=== PATIENT | male | born 1945 | race Caucasian/White ===

== ENCOUNTER 2017-07-28 10:14 | Emergency (ER) | payer OTHER ==
[~2017-07-28] VITALS: Ht 175.3 cm; Wt 74.8 kg
[~2017-07-28 10:14] MED LIST: ALBUTEROL2.5 MG/31 INH; ALDACTONE25 MG PO; ALL DAY ALLERGY10 M3 PO; ALLOPURINOL 30300 M2 PO; AMARYL2 MG PO; AMBIEN 10 MG TA10 MG PO; AMITRIPTYLINE H10 M3 PO; ANASPAZ0.125 MG PO; ASA5UEC PO; ASPIRIN EC81 M1 PO; ATORVASTATIN CA40 MG PO; AUGMENTIN 875875 MG PO; BAYER CHEWABLE81 MG PO; CALCIUM 600 WI1 EAC5 PO; COLACE100 MG PO; DILTIAZEM 24HR300 M1; DILTIAZEM 24HR300 M1 PO; DILTIAZEM 24HR300 M2 PO; FLOMAX PO; FLOMAX0.4 MG PO; GEMFIBROZIL 60600 MG; GEMFIBROZIL 60600 MG PO; GENTAMICIN SU3 MG/ML OPHTHALMIC; GLUCOPHAGE500 MG PO; HYDROCODON-ACE1 EAC5 PO; LANTAPROST OPHTHALMIC; LANTUS100 UNIT/M SUBQ; LEVOTHYROXIN0.137 M1 PO; LIPITOR40 MG PO; LISINOPRIL-HCT1 EAC2 PO; LISINOPRIL10 MG PO; LORTAB 7.5/5001 TA3 PO; MAGOX 400400 MG PO; MULTIVITAMINS PO; NEURONTIN300 MG PO; OMEPRAZOLE; PLAVIX 75 MG TA75 M1 PO; POTASSIUM20 PO; POTASSIUM99 M2 PO; PREDNISONE 10 M10 MG PO; PRILOSEC 20 MG20 MG PO; PRINZIDE 20-251 EACH PO; SAW PALMETTO500 MG PO; SPIRIVA INH; TAMSULOSIN HCL0.4 M1 PO; UNICOMPLEX M TA1 TA1 PO; VESICARE 5 MG TA5 M1 PO; VESICARE 5 MG TA5 MG PO; VITAMIN E400 UNIT PO; ZANAFLEX4 MG PO; ZINC CHELATE50 MG PO; ZYRTEC 10 MG TA10 MG PO; ZYRTEC10 M2 PO
[2017-07-28 10:50] LABS: ABSOLUTE EOSINOPHILS 0.1 thou/uL (0.0-0.7); ABSOLUTE LYMPHOCYTES 1.6 thou/uL (0.8-5.3); ABSOLUTE MONOCYTES 0.6 thou/uL (0.0-1.2); BASOPHILS 0.4 %; EOSINOPHILS 0.8 %; HEMATOCRIT 43.1 % (42.0-52.0); HEMOGLOBIN 14.6 gm/dL (14.0-18.0); LYMPHOCYTES 14.4 %; MCH 31.1 pg (26.0-34.0); MCHC 33.9 g/dL (28.0-37.0); MCV 91.7 fL (80.0-100.0); MONOCYTES 5.3 %; NUCLEATED RBCS 0 /100WBC; PLATELET COUNT* 326 thou/uL (150-400); POLYS 79.1 %; RDW-CV 14.6 % (10.5-14.5); WBC 11.4 thou/uL (4.0-11.0)
[2017-07-28 10:57] LABS: ANION GAP 10 mmol/L (7-16); BUN 21 mg/dL (7-18); CALCIUM 9.3 mg/dL (8.5-10.1); CHLORIDE 96 mmol/L (98-107); CO2 28 mmol/L (21-32); CREATININE 1.2 mg/dL (0.6-1.3); GLUCOSE 83 mg/dL (70-99); POTASSIUM 3.8 mmol/L (3.5-5.1); SODIUM 134 mmol/L (136-145)
[2017-07-28 11:08] LABS: ALBUMIN 4.1 g/dL (3.4-5.0); ALKALINE PHOSPHATASE 80 U/L (46-116); NT-PRO BRAIN NAT PEPTIDE 53 pg/mL (<300); SGOT 19 U/L (15-37); SGPT 28 U/L (30-65); TOTAL BILIRUBIN 0.3 mg/dL (<0.1-1.0); TOTAL PROTEIN 7.3 g/dL (6.4-8.2); TROPONIN-I LEVEL <0.06 ng/mL (<0.06)
[2017-07-28 11:49] LABS: URINE BILIRUBIN NEGATIVE (Negative); URINE BLOOD NEGATIVE (Negative); URINE CLARITY CLEAR; URINE COLOR YELLOW; URINE GLUCOSE-RANDOM NEGATIVE (Negative); URINE KETONES NEGATIVE (Negative); URINE LEUKOCYTES-REFLEX NEGATIVE (Negative); URINE NITRITE-REFLEX NEGATIVE (Negative); URINE PROTEIN NEGATIVE (Negative); URINE UROBILINOGEN 0.2 E.U./dl (0.2-1.0)
[2017-07-28 12:26] VITALS: BP 147/63
--- NOTE | 2017-07-29 13:06 | EKG ---
[place] [address] ELECTROCARDIOGRAM REPORT Name: PATRICK GREENWOOD Room: [facility]#: [id number] Admission: 07/28/17 Attend Phys: Discharge: 07/28/17 Date of : 41 Report #: [id number] THIS REPORT FOR: //name// ED Test Date: 2017-07-28 Test Time: 10:16:28 Pat Name: PATRICK GREENWOOD Department: Room: Gender: M Warehouse Selector: Jony BROOKE : 1945 Requested By: Star Glover Order Number: [id number] MD: George Orosco Measurements Intervals [place] Rate: 80 P: VA: QRS: 69 QRSD: 109 T: 64 QT: 370 QTc: 427 Interpretive Statements Atrial fibrillation Abnormal inferior Q waves Compared to ECG 07/16/2016 11:23:31 Inferior Q waves now present Q waves now present Sinus tachycardia no longer present Myocardial infarct finding no longer present Electronically Signed On 07-29-2017 13:06:06 CDT by George Orosco [email or web address] <ELECTRONICALLY SIGNED> By: George Orosco MD, FACC 07/29/17 1306 1016 1016 George Orosco MD, FAC /EPI
== END 2017-07-28 12:27 | disposition home or self-care (01) ==
LOC: M.ERS 10:14
PROVIDERS: Emergency Medicine Emergency Medical Services
DX: I10 Essential (primary) hypertension (principal); N40.0 Benign prostatic hyperplasia without lower urinary tract symptoms; E03.9 Hypothyroidism, unspecified; Z90.49 Acquired absence of other specified parts of digestive tract; Z86.73 Personal history of transient ischemic attack (TIA), and cerebral infarction without residual deficits; Z88.8 Allergy status to other drugs, medicaments and biological substances; Z79.4 Long term (current) use of insulin

== ENCOUNTER 2018-08-22 18:30 | Emergency (ER) | payer OTHER ==
[~2018-08-22] VITALS: Ht 175.3 cm; Wt 79.8 kg
[2018-08-22 18:49] VITALS: BP 159/79
== END 2018-08-22 19:41 | disposition home or self-care (01) ==
LOC: M.ERS 18:30
DX: R04.0 Epistaxis (principal); I10 Essential (primary) hypertension; E11.9 Type 2 diabetes mellitus without complications; J44.9 Chronic obstructive pulmonary disease, unspecified; E03.9 Hypothyroidism, unspecified; N40.0 Benign prostatic hyperplasia without lower urinary tract symptoms; Z88.5 Allergy status to narcotic agent; Z88.8 Allergy status to other drugs, medicaments and biological substances

== ENCOUNTER 2018-08-30 15:35 | Emergency (ER) | payer OTHER ==
[~2018-08-30] VITALS: Ht 175.3 cm; Wt 77.1 kg
[2018-08-30 15:40] VITALS: BP 185/84
== END 2018-08-30 16:10 | disposition home or self-care (01) ==
LOC: M.ERS 15:35
DX: R04.0 Epistaxis (principal); I10 Essential (primary) hypertension; E11.9 Type 2 diabetes mellitus without complications; J44.9 Chronic obstructive pulmonary disease, unspecified; E03.9 Hypothyroidism, unspecified; Z90.49 Acquired absence of other specified parts of digestive tract; Z86.73 Personal history of transient ischemic attack (TIA), and cerebral infarction without residual deficits; Z79.4 Long term (current) use of insulin; Z88.5 Allergy status to narcotic agent; Z88.8 Allergy status to other drugs, medicaments and biological substances

== ENCOUNTER 2018-08-31 12:50 | Emergency (ER) | payer OTHER ==
[~2018-08-31] VITALS: Ht 175.3 cm; Wt 77.1 kg
[2018-08-31 15:26] VITALS: BP 168/69
== END 2018-08-31 15:27 | disposition home or self-care (01) ==
LOC: M.ERS 12:50
DX: R04.0 Epistaxis (principal); N40.0 Benign prostatic hyperplasia without lower urinary tract symptoms; I10 Essential (primary) hypertension; E11.9 Type 2 diabetes mellitus without complications; E03.9 Hypothyroidism, unspecified; J44.9 Chronic obstructive pulmonary disease, unspecified; Z90.49 Acquired absence of other specified parts of digestive tract; Z79.4 Long term (current) use of insulin; Z98.52 Vasectomy status; Z88.8 Allergy status to other drugs, medicaments and biological substances; Z86.73 Personal history of transient ischemic attack (TIA), and cerebral infarction without residual deficits; Z90.89 Acquired absence of other organs

== ENCOUNTER 2018-10-20 18:37 | Emergency (ER) | payer OTHER ==
[~2018-10-20] VITALS: Ht 175.3 cm; Wt 81.7 kg
[2018-10-20 20:40] VITALS: BP 174/79
== END 2018-10-20 20:41 | disposition home or self-care (01) ==
LOC: M.ERS 18:37
DX: S52.125A Nondisplaced fracture of head of left radius, initial encounter for closed fracture (principal); S52.124A Nondisplaced fracture of head of right radius, initial encounter for closed fracture; I10 Essential (primary) hypertension; E11.9 Type 2 diabetes mellitus without complications; J44.9 Chronic obstructive pulmonary disease, unspecified; E03.9 Hypothyroidism, unspecified; Z79.4 Long term (current) use of insulin; Z90.49 Acquired absence of other specified parts of digestive tract; Z90.89 Acquired absence of other organs; Z86.73 Personal history of transient ischemic attack (TIA), and cerebral infarction without residual deficits; Z88.5 Allergy status to narcotic agent; Z88.8 Allergy status to other drugs, medicaments and biological substances; W18.39XA Other fall on same level, initial encounter; Y93.89 Activity, other specified; Y92.098 Other place in other non-institutional residence as the place of occurrence of the external cause; Y99.8 Other external cause status

== ENCOUNTER 2021-01-05 22:13 | Inpatient (IN) | payer OTHER ==
[~2021-01-05] VITALS: Ht 152.4 cm; Wt 76.1 kg
[2021-01-05 22:16] VITALS: BP 88/43
[2021-01-05] MEDS ORDERED: MICARDIS 20MG T20 M1 PO (22:28)
[2021-01-05] MEDS ORDERED: HYDROCHLOROTHIA25 M1 PO (22:28)
[2021-01-05] MEDS ORDERED: SPIRONOLACTONE25 MG PO (22:29)
[2021-01-05] MEDS ORDERED: NORVASC10 MG PO (22:30)
[2021-01-05 23:02] LABS: ABSOLUTE LYMPHOCYTES 1.2 thou/uL (0.8-5.3); ABSOLUTE MONOCYTES 0.5 thou/uL (0.0-1.2); ABSOLUTE NEUTROPHILS 5.4 thou/uL (1.6-8.1); BASOPHILS 0.2 %; HEMATOCRIT 42.2 % (42.0-52.0); HEMOGLOBIN 14.4 gm/dL (14.0-18.0); LYMPHOCYTES 17.3 %; MCH 31.3 pg (26.0-34.0); MCV 91.9 fL (80.0-100.0); MONOCYTES 7.2 %; MPV 7.9 fl. (7.2-11.1); NUCLEATED RBCS 0 /100WBC; PLATELET COUNT* 216 thou/uL (150-400); POLYS 75.3 %; RDW-CV 14.7 % (10.5-14.5); WBC 7.1 thou/uL (4.0-11.0)
--- NOTE | 2021-01-05 23:04 | NUR ---
THIS RN NOTED ASYSTOLE ON THE MONITOR, WITH NO PULSE PRESENT, AGONAL BREATHING. BEFORE CPR COULD BE INITIATED, PATIENT REGAINED PULSE AND SPONTANEOUS RESPIRATIONS. DR. LANCASTER CALLED TO BEDSIDE. VITAL SIGNS STABLE AT THIS TIME.
[2021-01-05 23:11] LABS: CALCIUM 8.4 mg/dL (8.5-10.1); CREATININE 1.6 mg/dL (0.6-1.3)
[2021-01-05 23:14] LABS: PROTIME 10.3 Seconds (9.20-11.50)
[2021-01-05 23:22] LABS: ALBUMIN 3.1 g/dL (3.4-5.0); TOTAL BILIRUBIN 0.3 mg/dL (<0.1-1.0)
[2021-01-06] VITALS (15 sets, daily range): BP systolic 134–187; BP diastolic 62–87
[2021-01-06 02:47] LABS: URINE BILIRUBIN NEGATIVE (Negative); URINE BLOOD NEGATIVE (Negative); URINE CLARITY CLEAR; URINE COLOR YELLOW; URINE GLUCOSE-RANDOM NEGATIVE (Negative); URINE KETONES NEGATIVE (Negative); URINE LEUKOCYTES-REFLEX NEGATIVE (Negative); URINE NITRITE-REFLEX NEGATIVE (Negative); URINE PROTEIN NEGATIVE (Negative); URINE SPECIFIC GRAVITY <= 1.005 (1.005-1.030); URINE UROBILINOGEN 0.2 E.U./dl (0.2-1.0)
--- NOTE | 2021-01-06 16:46 | NUR ---
Spoke with Veronica over the phone due to patient being in COVID isolation. Introduced role of CM. Per , patient was independent with ADLS prior to admission. Patient lives in a house with his . No stairs in the home. No hx of DME, dialysis, infusion therapy, BHS, HH, SNF or rehab. PCP is Sergio Stern. stated that she believes Medical DPOA has been established but she said she is not sure where the paperwork is. Advised that when her COVID symptoms have resolved and the alotted days have passed before going around others, to bring the paperwork up the hospital. verbalized understanding. tested postive for COVID today. Current plan of care: Patient is currently on 2L NC and ortho has been consulted for ankle fx sustained post fall out of bed. Cards following for HR and rhythm management. Patient could potentially downgrade to tele either today or tomorrow per physician. Therapies will need to be order post surgery to help with dc dispo. CM to continue to follow.
--- NOTE | 2021-01-06 17:52 | 2DMMODE ---
[place] [address] 2 D/M-MODE ECHOCARDIOGRAM Name: PATRICK GREENWOOD Room: [address] ADM IN .R.#: [id number] Admission: 01/06/21 Attend Phys: Joey Jerome Discharge: Date of : 41 Date of Service: 01/06/21 1752 Report #: [id number] THIS REPORT FOR: cc: Sergio Stern MD, Anthony MD Liston, Michael J. MD [facility] ~ APPROVED REPORT Study performed: 01/06/2021 13:47:57 EXAM: Comprehensive 2D, Doppler, and color-flow Echocardiogram Patient Location: In-Patient BSA: 1.92 HR: 87 bpm BP: 138/62 mmHg Other Information Study Quality: Technically Limited Technically limited study due to patient coughing. Indications Murmur 2D Dimensions IVSd: 9.99 (7-11mm) LVOT Diam: 17.31 (18-24mm) LVDd: 36.13 mm PWd: 11.46 (7-11mm) Ascending Ao: 30.74 (22-36mm) LVDs: 27.79 (25-40mm) Aortic Root: 24.92 mm Volumes Left Atrial Volume (Systole) LA ESV Index: 47.80 mL/m2 Aortic Valve AoV Peak Hector.: 0.85 m/s AO Peak Gr.: 2.87 mmHg LVOT Max P.27 mmHg AO Mean Gr.: 1.71 mmHg LVOT Mean P.13 mmHg LVOT Max V: 0.75 m/s AO V2 VTI: 15.11 cm LVOT Mean V: 0.49 m/s RAMONA (VTI): 2.41 cm2 LVOT V1 VTI: 15.48 [place] [address] 2 D/M-MODE ECHOCARDIOGRAM Name: PATRICK GREENWOOD Room: [address] IN .R.#: [id number] Admission: 01/06/21 Attend Phys: Joey Jerome Discharge: Date of : 41 Date of Service: 01/06/21 1752 Report #: [id number] Mitral Valve E/A Ratio: 0.66 MV Decel. Time: 269.35 ms MV E Max Hector.: 0.65 m/s MV PHT: 78.11 ms MVA (PHT): 2.82 cm2 TDI E/Lateral E': 6.50 E/Medial E': 13.00 Medial E' Hector.: 0.05 m/s Lateral E' Hector.: 0.10 m/s Pulmonary Valve PV Peak Hector.: 1.30 m/s PV Peak Gr.: 6.80 mmHg Left Ventricle The left ventricle is normal size. There is normal LV segmental wall motion. There is normal left ventricular wall thickness. Left ventricular systolic function is normal. LVEF is 55-60%. Grade I - abnormal relaxation pattern. Right Ventricle The right ventricle is normal size. The right ventricular systolic function is normal. Atria Left atrium is mildly dilated. The right atrium size is normal. Aortic Valve The aortic valve is not well visualized. No aortic regurgitation is present. There is no aortic valvular stenosis. Mitral Valve The mitral valve is normal in structure. There is no mitral valve regurgitation noted. No evidence of mitral valve stenosis. Tricuspid Valve Tricuspid valve is not well visualized. There is no tricuspid valve regurgitation noted. Pulmonic Valve Pulmonic valve is not well visualized. There is no pulmonic valvular regurgitation. [place] [address] 2 D/M-MODE ECHOCARDIOGRAM Name: PATRICK GREENWOOD Room: [address] IN [facility]#: [id number] Admission: 01/06/21 Attend Phys: Joey Jerome Discharge: Date of : 41 Date of Service: 01/06/21 1752 Report #: [id number] The aortic root is normal in size. The aortic root is not well visualized but is probably normal size. Aortic arch is not visualized. IVC is normal in size and collapses >50% with inspiration. Pericardium There is no pericardial effusion. <Conclusion> The left ventricle is normal size. There is normal left ventricular wall thickness. Left ventricular systolic function is normal. LVEF is 55-60%. Grade I - abnormal relaxation pattern. There is normal LV segmental wall motion. Left atrium is mildly dilated. IVC is normal in size and collapses >50% with inspiration. <ELECTRONICALLY SIGNED> By: Horacio Moe MD, FACC 01/06/211751 51 51 Horacio Moe MD, FACC /INF
[2021-01-07] VITALS (10 sets, daily range): BP systolic 149–173; BP diastolic 58–71
[2021-01-07 05:08] LABS: HEMATOCRIT 42.9 % (42.0-52.0); MCH 31.3 pg (26.0-34.0); MCHC 32.6 g/dL (28.0-37.0); MCV 95.8 fL (80.0-100.0); MPV 7.8 fl. (7.2-11.1); RBC 4.48 mil/uL (4.50-6.00)
[2021-01-07 05:18] LABS: CALCIUM 8.3 mg/dL (8.5-10.1)
--- NOTE | 2021-01-07 08:48 | NUR ---
ICU Rounds: Patient currently on 2L NC. Continued pain meds and steroids. Cards following for possible pacemaker placement once COVID 19 is resolved. Per cards, no immediate need for pacemaker at this time but patient will need eventually due to prolonged asystole. Per ortho, patient will need ankle ORIF in 1-2 weeks when anesthesia and cards clear post COVID 19 recovery. Therpies ordered 01/07 to help with dc dispo. CM to continue to follow
--- NOTE | 2021-01-07 09:51 | NUR ---
PT MAINTAINED RATE CONTROLLED AFIB TRHOUGH THE NIGHT. NO PAUSES. PT WAS CONCERNED ABOUT GETTING HIS SYNTHROID IN THE AM. NOTIFIED INDUSTRIAL SOCIOLOGIST AND MEDICAITON ORDERED. PT REQUIRED X2 ASSIST WITH GAITBELT GETTING UP TO COMMODE. LARGE LIQUID BROWN BM. PT MAINTAINED O2 ON 2L BUT HAD A RESPIRATORY DISTRESS MOMENT AFTER USING THE COMMODE. LIGHT WHEEZES NOTED IN THE BASES. EXCESSIVE COUGHING WITH SOA- RESOLVED. PT DID REPORT COPD AND USES ALBUTEROL INHALERS @ HOME. CALLED AND XOPENX TREATMENTS INTIATED.
--- NOTE | 2021-01-07 14:17 | EKG ---
[place] [address] ELECTROCARDIOGRAM REPORT Name: PATRICK GREENWOOD Room: [address] ADM IN .R.#: [id number] Admission: 01/06/21 Attend Phys: Joey Jerome Discharge: Date of : 41 Date of Service: 01/05/212219 Report #: [id number] THIS REPORT FOR: //name// [facility] ED Test Date: 2021-01-05 Test Time: 22:20:35 Pat Name: PATRICK GREENWOOD Department: Room: [facility] Gender: M Government Professor: [place] : 1945 Requested By: Daisy Arvizu Order Number: [id number] MD: Aniket Olson Measurements Intervals [place] Rate: 77 P: 51 ME: 147 QRS: 71 QRSD: 102 T: 65 QT: 369 QTc: 418 Interpretive Statements Sinus rhythm Compared to ECG 07/28/2017 10:16:28 Atrial fibrillation no longer present Electronically Signed On 01-07-2021 14:16:54 CDT by Aniket Olson [email or web address] <ELECTRONICALLY SIGNED> By: Aniket Olson MD, FACC 01/07/21 1416 19 19 Aniket Olson MD, FAC /EPI
--- NOTE | 2021-01-07 18:52 | NUR ---
PT TRANSFERRED TO TELE.
[2021-01-08] VITALS: BP 139/60
[2021-01-08 04:43] VITALS: BP 146/65
[2021-01-08 05:41] LABS: HEMATOCRIT 37.2 % (42.0-52.0); MCH 31.6 pg (26.0-34.0); MCHC 34.8 g/dL (28.0-37.0); MPV 7.7 fl. (7.2-11.1); RBC 4.1 mil/uL (4.50-6.00); RDW-CV 14.8 % (10.5-14.5)
[2021-01-08 05:49] LABS: CALCIUM 8.2 mg/dL (8.5-10.1); CREATININE 1.2 mg/dL (0.6-1.3); POTASSIUM 3.6 mmol/L (3.5-5.1)
[2021-01-08 05:55] LABS: MCV 90.7 fL (80.0-100.0)
--- NOTE | 2021-01-08 07:12 | NUR ---
Alert and oriented x 4. Vitals signs stable, Sinus rhthym to sinus tach all this shift. He voids per urinal. Pain med x 1 for LLE pain. Bulky acewrap dressing to LLE dry and intact. He has had nothing by mouth since midnight. O2 continues to be on 2L n/c.
[2021-01-08 08:15] VITALS: BP 165/69
--- NOTE | 2021-01-08 13:46 | NUR ---
Assumed care at 0730. Pt is alert and oriented. Assessment done and charted. Pt is schedule for surgery today. Will continue to provide care. AT 1245 pt was taken to surgery. We awaits his return to the unit.
--- NOTE | 2021-01-08 16:58 | NUR ---
Case and plan of care reviewed with physician each weekday during patient's length of stay. Continue plan of care per physician orders. Surgery scheduled today for ORIF with syndesosis repair, pt is Covid +. CM will continue to follow for discharge planning. needs Anticipated are rehab vs. skilled at this time. PT/OT will eval.
[2021-01-08 20:00] VITALS: BP 142/52
[2021-01-09] VITALS: BP 138/60
[2021-01-09 04:48] VITALS: BP 117/55
[2021-01-09 09:20] VITALS: BP 127/49
[2021-01-09 09:43] LABS: ALBUMIN 2.2 g/dL (3.4-5.0); CALCIUM 7.5 mg/dL (8.5-10.1); CREATININE 1.3 mg/dL (0.6-1.3); MAGNESIUM 2.1 mg/dL (1.8-2.4); POTASSIUM 4.3 mmol/L (3.5-5.1); TOTAL BILIRUBIN 0.4 mg/dL (<0.1-1.0); TOTAL PROTEIN 5.9 g/dL (6.4-8.2)
[2021-01-09 09:53] LABS: WBC 5.8 thou/uL (4.0-11.0)
[2021-01-09 09:59] LABS: HEMATOCRIT 32.1 % (42.0-52.0); MCH 31.9 pg (26.0-34.0); MCHC 33.7 g/dL (28.0-37.0); MCV 94.7 fL (80.0-100.0); MPV 8.4 fl. (7.2-11.1); RBC 3.39 mil/uL (4.50-6.00); RDW-CV 14.5 % (10.5-14.5)
[2021-01-09 10:00] LABS: HEMOGLOBIN 10.8 gm/dL (14.0-18.0)
[2021-01-09 12:37] VITALS: BP 129/56
[2021-01-09 16:52] VITALS: BP 148/60
--- NOTE | 2021-01-09 18:18 | NUR ---
Assumed care at 0730. Pt is alert and oriented. Assessment done and charted. Pt refused charles to be placed. Pt wants to continue using urinal. Fluid was dc'd. Pain medicine given x1 using this shift. Will continue to provide care.
[2021-01-10] VITALS: BP 127/58
[2021-01-10 04:00] VITALS: BP 133/58
--- NOTE | 2021-01-10 06:18 | NUR ---
PT AO X4 LYING IN THE BED AT TIME OF ASSESSMENT, HE HAS UNCONTROLLED PAIN FROM TODAY, MEDS GIVEN AND ICE APPLIED. HE ALSO HAS A COMPLAINT OF FREQUENT URINATION AND HAD PREVIOUSLY REFUSED JASON CATH FOR RETENTION BUT NOW IS CONSENTING. JASON PLACED WITHOUT DIFFICULTY AND 700ML CLEAR YELLOW URINE IMMEDIATELY IN RETURN. PT LUNGS ARE COURSE AND COUGH IS NONPRODUCTIVE. PT LT LEG ELEVATED ON PILLOW WITH SCD IN PLACE ON RT FOOT. PT IS ON 8L NC AND SATS HAVE BEEN IN THE 88-90 RANGE ALL NIGHT. CALL LIGHT IN PLACE, BED ALARM ON FOR SAFETY
[2021-01-10 08:00] VITALS: BP 159/70
[2021-01-10 16:30] VITALS: BP 141/61
[2021-01-10 22:00] VITALS: BP 161/76
[2021-01-11 00:39] VITALS: BP 130/61
[2021-01-11 04:00] VITALS: BP 168/84; BP 176/79
--- NOTE | 2021-01-11 06:20 | NUR ---
PT AO X4 BUT SOMEWHAT WITHDRAWN TODAY, PAIN RATING 6/10 IN LT ANKLE AND HYDROCODONE GIVEN. PAIN SEEMS UNCONTROLLED, ICE APPLIED AND FOOT ELEVATED. PT ON 11 L NC AND INCREASED TO 12 FOR SAT>90. PT COUGH IS BETTER WITH LUNGS DIMINISHED. PT ENCOURAGED TO PRONE FOR SLEEP BUT REFUSED. CALL LIGHT IN REACH WITH BED ALARM ON FOR SAFETY
[2021-01-11 07:09] LABS: HEMATOCRIT 41.4 % (42.0-52.0); MCH 30.7 pg (26.0-34.0); MCHC 33.4 g/dL (28.0-37.0); MCV 91.9 fL (80.0-100.0); MPV 7.9 fl. (7.2-11.1); RBC 4.51 mil/uL (4.50-6.00); RDW-CV 14.7 % (10.5-14.5); WBC 10.1 thou/uL (4.0-11.0)
[2021-01-11 07:17] LABS: HEMOGLOBIN 13.8 gm/dL (14.0-18.0)
[2021-01-11 08:00] VITALS: BP 174/88
[2021-01-11 08:12] LABS: ALBUMIN 2.6 g/dL (3.4-5.0); CALCIUM 8.8 mg/dL (8.5-10.1); CREATININE 1.2 mg/dL (0.6-1.3); MAGNESIUM 2.4 mg/dL (1.8-2.4); POTASSIUM 4.2 mmol/L (3.5-5.1); TOTAL BILIRUBIN 0.5 mg/dL (<0.1-1.0); TOTAL PROTEIN 7.7 g/dL (6.4-8.2)
--- NOTE | 2021-01-11 16:19 | NUR ---
Case and plan of care reviewed with physician each weekday during patient's length of stay. Continue plan of care per physician orders. COVID+, 15L/HHF STARTING IV ANTIBIOTICS, STEROIDS AND PAIN CONTROLL LEFT ANKLE, ORIF 01/08 CM will continue to follow for discharge planning WILL ANTICIPATE REHAB VS. SKILLED.
[2021-01-11 21:30] VITALS: BP 162/55
[2021-01-12 04:00] VITALS: BP 161/61
[2021-01-12 05:07] LABS: ALBUMIN 2.3 g/dL (3.4-5.0); CALCIUM 8.2 mg/dL (8.5-10.1); CREATININE 1.1 mg/dL (0.6-1.3); MAGNESIUM 2.4 mg/dL (1.8-2.4); TOTAL BILIRUBIN 0.4 mg/dL (<0.1-1.0); TOTAL PROTEIN 6.7 g/dL (6.4-8.2)
--- NOTE | 2021-01-12 07:20 | NUR ---
CHANGE OF SHIFT REPORT GIVEN PATIENT SEEN AT BEDSIDE, IN BED ASLEEP ASSUMED PATIENT CARE
[2021-01-12 07:21] LABS: HEMATOCRIT 36.7 % (42.0-52.0); HEMOGLOBIN 12.2 gm/dL (14.0-18.0); MCH 30.3 pg (26.0-34.0); MCHC 33.2 g/dL (28.0-37.0); MCV 91.2 fL (80.0-100.0); MPV 8.1 fl. (7.2-11.1); RBC 4.03 mil/uL (4.50-6.00); RDW-CV 14.4 % (10.5-14.5); WBC 13.2 thou/uL (4.0-11.0)
[2021-01-12 08:00] VITALS: BP 163/77
[2021-01-12 12:25] VITALS: BP 135/69
[2021-01-12 15:42] VITALS: BP 158/66
--- NOTE | 2021-01-12 18:35 | CON ---
[address] [address] CONSULTATION Name: PATRICK GREENWOOD Room: [address] ADM IN M.R.#: [id number] Admission: 01/06/21 Attend Phys: Diann Dixon Discharge: Date of : 41 Report #: [id number] THIS REPORT FOR: cc: Sergio Stern MD, Anthony MD Pervez,Domingo ALMAGUER ~ DATE OF CONSULTATION: 01/11/2021 REQUESTING PHYSICIAN: Consult has been requested by Dr. Farias. INDICATION FOR CONSULTATION: Acute hypoxemic respiratory failure. HISTORY OF PRESENT ILLNESS: A 75-year-old gentleman. Past medical history includes a history of a stroke. He also has a previous history of smoking and COPD. He is not on supplemental oxygen at home. The patient is now admitted here with syncopal episodes. There is in fact an episode of sinus arrest greater than 30 minutes. This has also been recorded. On initial evaluation here, the patient did have a fracture of the left fibula and ankle for which he has undergone surgery. The patient reports having had a respiratory tract infection for several days prior to admission. He reports having had an antibiotic as well as a steroid through his primary care physician for these complaints. Upon initial require arrival, the patient was requiring 2 liters of oxygen to maintain O2 saturation in the low 90s. He also did test positive for COVID-19. The patient has been on Decadron. He has been refusing treatment with remdesivir or Actemra. Since yesterday, there is a significant increase in oxygen needs and from 2 liters nasal cannula, he is now on a green high-flow nasal cannula with the oxygen valve all the way open and I would estimate that this will give 20 liters of oxygen. He is maintaining O2 saturation in the low 90s with this. On his initial CT chest, which was performed on 01/06, there are only small infiltrates identified in particular at the right lung base. The chest x-ray yesterday shows significant worsening in these infiltrates. I did talk to Dr. Poole, radiologist. He did feel that the pulmonary arteries are well opacified on this CT and there is no pulmonary embolism detected. Venous Dopplers are also negative. He does have some swelling of lower extremities on exam. He is only bringing up scanty amounts of sputum at this time. REVIEW OF SYSTEMS: The patient's review of systems for 12 points is negative except as mentioned above. PAST MEDICAL HISTORY: Diabetes, hypertension, stroke, right leg surgery for precancerous or cancerous growth and large prostate, cyst removal from a finger, [place] [address] CONSULTATION Name: PATRICK GREENWOOD Room: [address] IN M.R.#: [id number] Admission: 01/06/21 Attend Phys: Diann Dixon Discharge: Date of : 41 Report #: [id number] vasectomy, COPD, hypothyroidism, left shoulder surgery. Recent echocardiogram shows a left ventricular ejection fraction of 55-60% with a pulmonary artery systolic not elevated. SOCIAL HISTORY: There is an extensive history of smoking in the past, has now discontinued, unable to quantify exactly at this time. ALLERGIES: HE HAS HAD EITHER AN ADVERSE REACTION OR INTOLERANCE OR ALLERGY TO HYDROCODONE OR PHENYLEPHRINE. CURRENT MEDICATIONS: List in [facility] reviewed. HOME MEDICATIONS: List in [facility] reviewed. FAMILY HISTORY: No pertinent family history at this time. PHYSICAL EXAMINATION: GENERAL: He is alert, awake and oriented. VITAL SIGNS: Has a pulse of 99 and a blood pressure elevated to 174/83. He was saturating around 92-93% on an estimated 18-20 liters oxygen with a green high-flow nasal cannula. He is afebrile with a temperature of 36.6. He had a fever up to 38.1 yesterday. HEENT: Head is normocephalic and atraumatic. NECK: Does not show raised JVP. CHEST: Breath sounds are bilaterally equal, but decreased. No added sounds. HEART: Regular. No murmur. ABDOMEN: Soft and nontender. EXTREMITIES: Lower extremities, 1+ edema, no calf tenderness. SKIN: Dry and intact. NEUROLOGIC: Moves all extremities bilaterally equally and spontaneously with no focal deficit identified. LABORATORY DATA: The patient's chest x-rays are as discussed above. CT chest also as above. I reviewed both the films as well as report and talked to the radiologist as well. He has had numerous CTs and x-rays I reviewed the reports. The patient's lab work is in [facility] and this is also reviewed. ASSESSMENT AND PLAN: 1. Acute hypoxemic respiratory failure. This is secondary to COVID-19. The infiltrate in the right lung base and the last CT looks lobar. Therefore, I would suspect that there is a secondary bacterial infection as well considering no evidence of thromboembolism on CT chest, venous Dopplers and echo this appears unlikely. 2. COVID-19. The patient is on dexamethasone. I agree with the same. I [address] [address] CONSULTATION Name: PATRICK GREENWOOD Room: [address] ADM IN M.R.#: [id number] Admission: 01/06/21 Attend Phys: Diann Dixon Discharge: Date of : 41 Report #: [id number] recommended remdesivir and Actemra. The patient, however, had declined these earlier on admission and he declines these against my advice at this time as well. There will be some risk in giving him Actemra, but in my view, the benefit will be greater than benefit and therefore, I had recommended elevation in LFTs. The elevation in his LFTs is minimal. Overall remdesivir would be low risk for this patient, but he declined. Considering he declined these, I did not discuss with him regarding convalescent plasma. 3. Pulmonary infiltrates. At least the infiltrate at the right lung base likely secondary bacterial infection, but primarily infiltrates are secondary to COVID and have progressed significantly since admission; therefore, I agree with Zosyn and doxycycline and will follow response. In case he declines, then in that case I will consider switching his doxycycline over to Zithromax and linezolid. More cultures are ordered. 4. Fluid overload. He received Lasix earlier today. I agree with the same. We will follow response. His BUN is elevated, we will reassess tomorrow. We will consider giving him more Lasix, possibly with albumin to avoid further rise in BUN, albumin, however, does increase blood pressure, his blood pressure currently is elevated. Recommend blood pressure control. 5. Chronic obstructive pulmonary disease exacerbation. He is on Decadron. I would change his ipratropium to schedule and will increase to Xopenex dose. 6. Hyperglycemia/diabetes. Defer management to the Primary Service. 7. Deep vein thrombosis prophylaxis. His creatinine has now normalized, we will therefore at least give him 40 mg once a day if not contraindicated for surgery and increasing Lovenox to intermediate dose can also be considered. 8. Clostridium difficile prophylaxis. We will give him Lactinex. 9. Gastrointestinal prophylaxis, Protonix. Thanks for this consultation. <ELECTRONICALLY SIGNED> By: Domingo Piña MD 01/12/21 1835 1635 [id number] Piña MD /nt
[2021-01-12 22:00] VITALS: BP 173/71
[2021-01-13 00:33] VITALS: BP 163/68
[2021-01-13 04:41] LABS: HEMATOCRIT 37.4 % (42.0-52.0); HEMOGLOBIN 12.5 gm/dL (14.0-18.0); MCH 30.6 pg (26.0-34.0); MCHC 33.5 g/dL (28.0-37.0); MCV 91.4 fL (80.0-100.0); MPV 7.6 fl. (7.2-11.1); NUCLEATED RBCS 0 /100WBC; PLATELET COUNT* 413 thou/uL (150-400); RBC 4.09 mil/uL (4.50-6.00); RDW-CV 14.2 % (10.5-14.5); WBC 14.9 thou/uL (4.0-11.0)
[2021-01-13 04:50] VITALS: BP 176/69
[2021-01-13 04:54] LABS: ALBUMIN 2.4 g/dL (3.4-5.0); CALCIUM 8.3 mg/dL (8.5-10.1); MAGNESIUM 2.3 mg/dL (1.8-2.4); POTASSIUM 3.7 mmol/L (3.5-5.1); TOTAL BILIRUBIN 0.7 mg/dL (<0.1-1.0); TOTAL PROTEIN 6.8 g/dL (6.4-8.2)
[2021-01-13 06:50] LABS: ABSOLUTE LYMPHOCYTES 2.1 thou/uL (0.8-5.3); ABSOLUTE NEUTROPHILS 11.8 thou/uL (1.6-8.1)
[2021-01-13 06:51] LABS: PLATELET ESTIMATE ADEQUATE
[2021-01-13 06:52] LABS: HYPOCHROMASIA 1+; POLYCHROMASIA 1+
[2021-01-13 08:00] VITALS: BP 180/73
--- NOTE | 2021-01-13 08:54 | NUR ---
PATIENT HAS SLEPT OFF AND ON DURING THE NIGHT. PATIENT CURRENTLY ON HEATED DELFINA FLOW AT 55L WITH FIO2 OF 100% AND OXYGEN SATURATIONS HAVE BEEN AROUND 87% TO 89% MOST OF THE TIME. PATIENT REMAINS NWB TO LEFT LOWER EXT. PATIENT IS VERY CONFRONTATIONAL WITH STAFF AND VERY UNPLEASANT ATTITUDE TOWARDS STAFF AND IS AGITATED REGULARLY AND YELLS AT STAFF AT TIMES. PATIENT DECLINING BI-PAP AT NIGHT. MEDICATIONS GIVEN ORDERED ALTHOUGH PATIENT DECLINED TO TAKE THYROID MEDICATION THIS AM D/T BEING ANGRY THAT IT WAS SCHEDULED WITH OTHER AM MEDICATIONS. IV IN LEFT HAND-SL. IV ABT'S GIVEN WITHOUT ANY ADVERS SIDE EFFECTS. FALL PRECAUTIONS IN PLACE AND HOURLY ROUNDS MADE. WILL CONTINUE WITH PLAN OF CARE AND NURSING TO MONITOR.
[2021-01-13 12:00] VITALS: BP 175/78
--- NOTE | 2021-01-13 14:35 | NUR ---
Nutrition: Pt admitted to COVID unit. Assessed for LOS. CHO controlled diet. No intake records. Wt: 169#. BG 219, alb 2.4, prealb 17.9. On heated hi-ramonita. Apparently confrontational with staff. No nutrition interventions at this time. Low nutrition risk.
--- NOTE | 2021-01-13 15:59 | NUR ---
Case and plan of care reviewed with physician each weekday during patient's length of stay. Continue plan of care per physician orders. COVID + DC from isolation today. ORIF LEFT ANKLE 01/08/21, PT/OT FOLLOWING. O2 REMAINS 55L/HHF Fio2 100%. CM will continue to follow for discharge planning. NEEDS ANTICIPATED AT THIS TIME ARE USP.
[2021-01-13 16:00] VITALS: BP 171/73
--- NOTE | 2021-01-13 19:00 | NUR ---
PT. AOX4, VSS, DENIES PAIN OR DISCOMFORT, CALL LIGHT AND PERSONAL BELONGINGS PLACED WITHIN REACH. PT. ON HEATED HIGH FLOW, ANXIOUS TO RETURN HOME. SPOKE TO , ENCOURAGED PT TO STAY RESIPIRATORY STATUS UNSTABLE. TRANSFERED CARE OF PT TO TASHI ELLIS AROUND 1630, IN STABLE CONDITION, AT THAT TIME.
--- NOTE | 2021-01-13 19:51 | NUR ---
Pt reports he would like to get evening meds by 2100 if possible so he can get some sleep. States he has not slept well past few nights. VSS. Remains on O2 per HHF 55L @100% FIO2. Will continue to monitor.
[2021-01-13 21:17] VITALS: BP 167/76
[2021-01-14] VITALS: BP 169/75
[2021-01-14 03:47] LABS: ABSOLUTE LYMPHOCYTES 0.9 thou/uL (0.8-5.3); ABSOLUTE MONOCYTES 0.6 thou/uL (0.0-1.2); ABSOLUTE NEUTROPHILS 11.3 thou/uL (1.6-8.1); BASOPHILS 0.3 %; HEMATOCRIT 35.5 % (42.0-52.0); HEMOGLOBIN 12.1 gm/dL (14.0-18.0); LYMPHOCYTES 7.1 %; MCH 30.7 pg (26.0-34.0); MCV 90.2 fL (80.0-100.0); MONOCYTES 4.7 %; MPV 7.5 fl. (7.2-11.1); NUCLEATED RBCS 0 /100WBC; PLATELET COUNT* 450 thou/uL (150-400); POLYS 87.9 %; RBC 3.94 mil/uL (4.50-6.00); RDW-CV 14.4 % (10.5-14.5); WBC 12.8 thou/uL (4.0-11.0)
[2021-01-14 04:00] VITALS: BP 177/85
[2021-01-14 04:05] LABS: ALBUMIN 2.2 g/dL (3.4-5.0); CREATININE 1.1 mg/dL (0.6-1.3); MAGNESIUM 2.2 mg/dL (1.8-2.4); POTASSIUM 4.2 mmol/L (3.5-5.1); TOTAL BILIRUBIN 0.8 mg/dL (<0.1-1.0); TOTAL PROTEIN 6.5 g/dL (6.4-8.2)
[2021-01-14 08:23] VITALS: BP 147/75
[2021-01-14 12:01] VITALS: BP 170/55
--- NOTE | 2021-01-14 16:03 | NUR ---
Case Management Followup Consultation with provider indicated pt is not yet medically clear for discharge.
[2021-01-14 16:25] VITALS: BP 178/62
[2021-01-14 21:00] VITALS: BP 169/70
[2021-01-15 02:51] LABS: ABSOLUTE LYMPHOCYTES 0.9 thou/uL (0.8-5.3); ABSOLUTE MONOCYTES 0.4 thou/uL (0.0-1.2); ABSOLUTE NEUTROPHILS 11.4 thou/uL (1.6-8.1); BASOPHILS 0.1 %; HEMATOCRIT 33.9 % (42.0-52.0); HEMOGLOBIN 11.5 gm/dL (14.0-18.0); LYMPHOCYTES 7.4 %; MCH 30.4 pg (26.0-34.0); MCHC 33.7 g/dL (28.0-37.0); MCV 90.1 fL (80.0-100.0); MPV 7.7 fl. (7.2-11.1); NUCLEATED RBCS 0 /100WBC; PLATELET COUNT* 465 thou/uL (150-400); POLYS 89.5 %; RBC 3.77 mil/uL (4.50-6.00); RDW-CV 14.7 % (10.5-14.5); WBC 12.7 thou/uL (4.0-11.0)
[2021-01-15 03:19] LABS: PREALBUMIN 16.6 mg/dL (18.0-35.7)
[2021-01-15 03:20] LABS: CREATININE 1.2 mg/dL (0.6-1.3); POTASSIUM 4.1 mmol/L (3.5-5.1); TOTAL BILIRUBIN 0.6 mg/dL (<0.1-1.0); TOTAL PROTEIN 6.2 g/dL (6.4-8.2)
[2021-01-15 04:45] VITALS: BP 154/72
--- NOTE | 2021-01-15 05:39 | NUR ---
PT AO X4 AND A BIT WITHDRAWN TODAY. HE STATES HE IS FEELING BETTER AND DESPITE BEING ON HIGHFLOW IS HOPEFUL TO GO HOME BY THE END OF NEXT WEEK. PT DENIES PAIN IN LT ANKLE AND HAS NOT HAD ANY PAIN MEDS FOR THIS TONIGHT. LUNGS CTA/DIM WITH NON PRODUCTIVE COUGH. PT IS ON HHF PER NC AT 50L@85%. HE IS GETTING ANTIBIOTICS. PT HAS JASON FOR RETENTION, CLEAR YELLOW IN ADEQUATE AMOUNT. PT HAD LARGE BM YESTERDAY. VSS, BED ALARM ON FOR SAFETY, CALL LIGHT IN REACH
[2021-01-15 08:00] VITALS: BP 163/75
[2021-01-15 11:30] VITALS: BP 159/76
--- NOTE | 2021-01-15 14:39 | NUR ---
Case Management Followup Pt not medically clear for discharge. Continue plan per physician orders. No additional needs noted at this time. Pt's contacted to relay pt is not yet medically clear and will remain at [facility] at least through the weekend.
[2021-01-15 16:00] VITALS: BP 173/62
[2021-01-15 21:00] VITALS: BP 153/52
[2021-01-16 00:14] VITALS: BP 156/69
[2021-01-16 04:07] LABS: ABSOLUTE BASOPHILS 0.1 thou/uL (0.0-0.2); ABSOLUTE LYMPHOCYTES 1.1 thou/uL (0.8-5.3); ABSOLUTE MONOCYTES 0.7 thou/uL (0.0-1.2); ABSOLUTE NEUTROPHILS 12.3 thou/uL (1.6-8.1); BASOPHILS 0.4 %; HEMATOCRIT 37.1 % (42.0-52.0); HEMOGLOBIN 12.4 gm/dL (14.0-18.0); LYMPHOCYTES 8.1 %; MCH 30.2 pg (26.0-34.0); MCHC 33.3 g/dL (28.0-37.0); MCV 90.6 fL (80.0-100.0); MONOCYTES 4.9 %; MPV 7.5 fl. (7.2-11.1); NUCLEATED RBCS 0 /100WBC; POLYS 86.6 %; RBC 4.09 mil/uL (4.50-6.00); RDW-CV 14.3 % (10.5-14.5); WBC 14.1 thou/uL (4.0-11.0)
[2021-01-16 04:19] LABS: PLATELET COUNT* 546 thou/uL (150-400)
[2021-01-16 04:20] LABS: ALBUMIN 2.3 g/dL (3.4-5.0); CALCIUM 8.5 mg/dL (8.5-10.1); CREATININE 1.2 mg/dL (0.6-1.3); POTASSIUM 4.3 mmol/L (3.5-5.1); TOTAL BILIRUBIN 0.7 mg/dL (<0.1-1.0); TOTAL PROTEIN 6.7 g/dL (6.4-8.2)
[2021-01-16 04:43] VITALS: BP 160/66
--- NOTE | 2021-01-16 06:40 | NUR ---
PT AO X4 BUT APPEARS VERY EXHAUSTED, HE CALLED EXCESSIVELY ABOUT GETIING HIS THYROID PILL. HE ALSO REQUESTED TO SPEAK TO THE DR EARLY THIS AM ABOUT GETTING A COVID TEST AND IF IT WAS NEGATIVE HE WANTED TO GO HOME. I TRIED TO EXPLAIN HE IS ON MORE OXYGEN THAN CAN BE SUPPLIED AT HOME BUT HE DIDNT UNDERSTAND, I TOLD HIM IF HE LEFT WITHOUT THE OXYGEN HE WOULD . PT DOESNT COMPREHEND WHY HE IS STILL HERE. HE IS REQUESTING A VISIT FROM HIS IF SHE IS NEGATIVE SHE HAS BEEN HOME WITH COVID. HE IS TECHNICALLY NOT IN ISOLATION AT THIS TIME. PT WAS ENCOURAGED TO MOVE AROUND MORE WITHIN HIS LIMIT OF NON WT BEARING ON LT FOOT. HE DID STAND AND PIVOT WITH ASSIST X2 TO [facility] FOR BM THIS AM. HE WAS DYSPNIC UPON GETTING BACK TO BED. PT CONTINUES TO BE ON HHF PER NC 50L @80%
[2021-01-16 08:00] VITALS: BP 183/71
[2021-01-16 11:30] VITALS: BP 130/58
[2021-01-16 16:00] VITALS: BP 166/68
[2021-01-16 19:49] VITALS: BP 184/74
[2021-01-17 00:27] VITALS: BP 138/69
[2021-01-17 04:06] LABS: ABSOLUTE LYMPHOCYTES 1.2 thou/uL (0.8-5.3); ABSOLUTE MONOCYTES 0.5 thou/uL (0.0-1.2); ABSOLUTE NEUTROPHILS 13.2 thou/uL (1.6-8.1); BASOPHILS 0.2 %; HEMATOCRIT 36.9 % (42.0-52.0); HEMOGLOBIN 12.6 gm/dL (14.0-18.0); LYMPHOCYTES 8.3 %; MCH 30.8 pg (26.0-34.0); MCHC 34.3 g/dL (28.0-37.0); MCV 89.7 fL (80.0-100.0); MONOCYTES 3.3 %; MPV 7.6 fl. (7.2-11.1); NUCLEATED RBCS 0 /100WBC; PLATELET COUNT* 588 thou/uL (150-400); POLYS 88.2 %; RBC 4.11 mil/uL (4.50-6.00); RDW-CV 14.5 % (10.5-14.5)
[2021-01-17 04:18] VITALS: BP 150/74
[2021-01-17 04:28] LABS: ALBUMIN 2.3 g/dL (3.4-5.0); CALCIUM 8.4 mg/dL (8.5-10.1); CREATININE 1.2 mg/dL (0.6-1.3); MAGNESIUM 1.9 mg/dL (1.8-2.4); POTASSIUM 4.2 mmol/L (3.5-5.1); TOTAL BILIRUBIN 0.8 mg/dL (<0.1-1.0); TOTAL PROTEIN 6.3 g/dL (6.4-8.2)
[2021-01-17 12:00] VITALS: BP 130/56
[2021-01-17 16:00] VITALS: BP 151/67
[2021-01-17 19:39] VITALS: BP 145/58
[2021-01-18] VITALS: BP 117/56
[2021-01-18 03:57] VITALS: BP 134/68
[2021-01-18 03:58] LABS: HEMATOCRIT 38.4 % (42.0-52.0); MCH 30.4 pg (26.0-34.0); MCHC 33.9 g/dL (28.0-37.0); MCV 89.6 fL (80.0-100.0); MPV 7.5 fl. (7.2-11.1); NUCLEATED RBCS 0 /100WBC; PLATELET COUNT* 638 thou/uL (150-400); RBC 4.29 mil/uL (4.50-6.00); RDW-CV 14.8 % (10.5-14.5); WBC 14.9 thou/uL (4.0-11.0)
[2021-01-18 04:24] LABS: ALBUMIN 3.1 g/dL (3.4-5.0); CALCIUM 8.7 mg/dL (8.5-10.1); CREATININE 1.4 mg/dL (0.6-1.3); MAGNESIUM 2.2 mg/dL (1.8-2.4); TOTAL BILIRUBIN 0.9 mg/dL (<0.1-1.0); TOTAL PROTEIN 6.7 g/dL (6.4-8.2)
[2021-01-18 04:53] LABS: ABSOLUTE LYMPHOCYTES 1.2 thou/uL (0.8-5.3); ABSOLUTE MONOCYTES 0.9 thou/uL (0.0-1.2); ABSOLUTE NEUTROPHILS 12.8 thou/uL (1.6-8.1); CLUMPED PLTS FEW; PLATELET ESTIMATE INCREASED
[2021-01-18 04:54] LABS: TOXIC GRANULATION Occasional
[2021-01-18 08:00] VITALS: BP 135/57
[2021-01-18 12:01] VITALS: BP 109/61
[2021-01-18 15:43] VITALS: BP 90/41
--- NOTE | 2021-01-18 17:31 | NUR ---
Case and plan of care reviewed with physician each weekday during patient's length of stay. Continue plan of care per physician orders. COVID+, continuing HHF O2 at 45L. Tapering steroids, patient's family agreed to Iv Actemra. CM will continue to follow for Anticipated needs Rehab vs Skilled or with HH.
--- NOTE | 2021-01-18 20:08 | NUR ---
PATIENT HAD A QUIET DAY TODAY. PATIENT WAS UP IN CHAIR FOR MOST OF THE DAY. PATIENT SEEMED A LITTLE UNHAPPY THIS AM, BUT BETTER THIS AFTERNOON. PATIENT ON HIGH FLOW NC. RT ADJUSTS ACCORDINGLY.
[2021-01-18 21:30] VITALS: BP 138/65
[2021-01-19] VITALS: BP 119/55
[2021-01-19 04:08] LABS: ABSOLUTE EOSINOPHILS 0.1 thou/uL (0.0-0.7); ABSOLUTE LYMPHOCYTES 1.5 thou/uL (0.8-5.3); ABSOLUTE MONOCYTES 0.4 thou/uL (0.0-1.2); ABSOLUTE NEUTROPHILS 15.2 thou/uL (1.6-8.1); BASOPHILS 0.1 %; EOSINOPHILS 0.3 %; HEMATOCRIT 38.1 % (42.0-52.0); HEMOGLOBIN 12.7 gm/dL (14.0-18.0); LYMPHOCYTES 8.5 %; MCH 30.3 pg (26.0-34.0); MCHC 33.3 g/dL (28.0-37.0); MCV 90.9 fL (80.0-100.0); MONOCYTES 2.5 %; MPV 7.5 fl. (7.2-11.1); NUCLEATED RBCS 0 /100WBC; PLATELET COUNT* 597 thou/uL (150-400); POLYS 88.6 %; RBC 4.19 mil/uL (4.50-6.00); RDW-CV 14.6 % (10.5-14.5); WBC 17.2 thou/uL (4.0-11.0)
[2021-01-19 04:29] VITALS: BP 105/57
[2021-01-19 04:30] LABS: ALBUMIN 2.8 g/dL (3.4-5.0); CALCIUM 8.4 mg/dL (8.5-10.1); CREATININE 1.4 mg/dL (0.6-1.3); POTASSIUM 4.3 mmol/L (3.5-5.1); TOTAL BILIRUBIN 0.6 mg/dL (<0.1-1.0); TOTAL PROTEIN 6.4 g/dL (6.4-8.2)
--- NOTE | 2021-01-19 06:15 | NUR ---
PT AO X4 LYING IN BED LOOKING VERY TIRED THIS PM. HE CONTINUES ON HHF PER NC AT45L @72%. PT STILL BREATHING VERY SHALLOW THAT PRODUCES COUGH THAT IS NONPRODUCTIVE, HE IS ENCOURAGED TO USE IS 10X/HR WHILE AWAKE. I ENCOURAGED HIM TO TALK TO THE DR ABOUT IF BIPAP WOULD HELP. PT HAS JASON FOR RETENTION THAT HAS BEEN IN FOR 10+ DAYS AND I ASKED IF HE WOULD LIKE TO START USING URINAL AND HE THOUGHT THAT WOULD BE A GOOD IDEA TO START IN THE DAYTIME. PT HAD SOME PAIN EARLY THIS AM FOR WHICH HYDROCODONE WAS GIVEN WITH GOOD RESULTS. CALL LIGHT IN REACH FOR PT SAFETY
--- NOTE | 2021-01-19 06:30 | NUR ---
CALL PLACED TO ORTHO DYE RANGE OPERATOR PER PT REQUEST, ORIF 01/08 AND HAS SURGICAL BANDAGE IN PLACE. PT STATES HE HAS QUESTIONS FOR SURG
[2021-01-19 08:00] VITALS: BP 158/58
[2021-01-19 12:27] VITALS: BP 137/49
--- NOTE | 2021-01-19 15:37 | NUR ---
Case Management Followup CM and providers met to discuss length of stay and discharge. Providers indicated pt not yet medically clear for discharge. Pt off isolation and now declining alf services. Pt to obtain surgery f/u for splint for ankle fracture. CM to followup regarding pt's preference for discharge location. CM to continue to follow for discharge planning.
[2021-01-19 16:00] VITALS: BP 153/68
--- NOTE | 2021-01-19 19:39 | NUR ---
PATIENT HAD A FAIR DAY. UP TO CHAIR, AND ASSISTED BACK TO BED AROUND 1600. NON WT BERING LEFT LOWER EXTREMITY. CONTINUES TO HAVE SPLINT DUE TO FX. GOOD CIRC ND SENSATION LEFT LOWER EXTREMITY. PATIENT COMPLAINED OF PAIN TO LOWER LEFT EXTREMITY X1. I UPDATED HOSPITALIST ABOUT PTS FX AND ORTHO NEEDS TO SEE. ORTHO WAS CALLED WET CLEANER MACHINE NURSE, AND I CALLED AGAIN TODAY. PT REMAINS HIGH FLOW O2, AND BREATH SOUNDS COARSE BILATERAL LOWER LOBES.
[2021-01-19 20:00] VITALS: BP 157/62
[2021-01-20 00:31] VITALS: BP 116/65
[2021-01-20 04:00] VITALS: BP 148/61
[2021-01-20 04:22] LABS: ABSOLUTE EOSINOPHILS 0.3 thou/uL (0.0-0.7); ABSOLUTE LYMPHOCYTES 2.2 thou/uL (0.8-5.3); ABSOLUTE MONOCYTES 0.5 thou/uL (0.0-1.2); ABSOLUTE NEUTROPHILS 11.1 thou/uL (1.6-8.1); BASOPHILS 0.2 %; EOSINOPHILS 2.2 %; HEMATOCRIT 40.1 % (42.0-52.0); HEMOGLOBIN 13.3 gm/dL (14.0-18.0); LYMPHOCYTES 15.8 %; MCH 30.2 pg (26.0-34.0); MCHC 33.3 g/dL (28.0-37.0); MCV 90.8 fL (80.0-100.0); MONOCYTES 3.6 %; MPV 7.7 fl. (7.2-11.1); NUCLEATED RBCS 0 /100WBC; PLATELET COUNT* 620 thou/uL (150-400); POLYS 78.2 %; RBC 4.42 mil/uL (4.50-6.00); RDW-CV 14.4 % (10.5-14.5); WBC 14.3 thou/uL (4.0-11.0)
[2021-01-20 04:48] LABS: ALBUMIN 2.8 g/dL (3.4-5.0); CALCIUM 8.8 mg/dL (8.5-10.1); CREATININE 1.3 mg/dL (0.6-1.3); MAGNESIUM 2.2 mg/dL (1.8-2.4); POTASSIUM 4.1 mmol/L (3.5-5.1); TOTAL BILIRUBIN 0.7 mg/dL (<0.1-1.0); TOTAL PROTEIN 6.3 g/dL (6.4-8.2)
--- NOTE | 2021-01-20 06:11 | NUR ---
pt AO x4 lying in bed at time of assessment, he is presently on 15L oxgen per NC satting in upper 90s. he reports increased cough with some production but does not know the color. lungs are diminished with fine crackles in bases bilaterally. pt again reports increased pain in post surgical foot for which norco was given with good results. Ortho office notified again for visit per pt request. pt slept well and sats remained in upper 90s, pt anxious to start discharge process
[2021-01-20 08:00] VITALS: BP 115/72; BP 97/67
[2021-01-20 12:00] VITALS: BP 154/73
--- NOTE | 2021-01-20 12:02 | NUR ---
UPDATED DR MARTELL ON PATIENTS BLOOD SUGAR DROPS. HE CALLED BACK TO DC THE LANTUS INSULIN.
--- NOTE | 2021-01-20 13:04 | NUR ---
POC UPDATE: PT CONT ON 15L OF HEATED HI FLOW. PT IS OFF ISOLATION. ORTHO FOLLOWING R/T SPLINT FOR ANKLE FRACTURE.
[2021-01-20 16:35] VITALS: BP 142/79
--- NOTE | 2021-01-20 20:08 | NUR ---
PATIENT HAD LOW BLOOD SUGAR WITH AM LABS. ACCU CHECK AT 0825 WAS 479. GAVE PATIENT 8 OUNCES OF OJ WITH SUGAR. RECHECKED AT 0900. WAS 127. PATIENT CONTINUES HIGH FLOW O2. GET WINDED EASILY WITH COUGHING AND MOVEMENT. DR IN TODAY TO CHANGE SPLINT AND WE PLACED BOOT TO LEFT LOWER EXTREMITY. NO WT BEARING TO LEFT LOWER EXTREMITY. PATIENT COMPLAINED OF PAIN X1. DR MARTELL NOTIFIED OF PATIENT LOW BLOOD SUGAR. DC'D HIS LANTUS INSULIN.
[2021-01-20 21:35] VITALS: BP 150/72
[2021-01-21 00:51] VITALS: BP 138/68
[2021-01-21 04:19] VITALS: BP 131/58
[2021-01-21 04:22] LABS: NUCLEATED RBCS 0 /100WBC
[2021-01-21 04:24] LABS: ABSOLUTE LYMPHOCYTES 1.3 thou/uL (0.8-5.3); ABSOLUTE MONOCYTES 0.2 thou/uL (0.0-1.2); ABSOLUTE NEUTROPHILS 14.3 thou/uL (1.6-8.1); BASOPHILS 0.3 %; EOSINOPHILS 0.1 %; HEMATOCRIT 39.8 % (42.0-52.0); HEMOGLOBIN 13.4 gm/dL (14.0-18.0); MCH 30.7 pg (26.0-34.0); MCHC 33.7 g/dL (28.0-37.0); MCV 90.9 fL (80.0-100.0); MONOCYTES 1.4 %; MPV 7.8 fl. (7.2-11.1); PLATELET COUNT* 597 thou/uL (150-400); POLYS 90.2 %; RBC 4.37 mil/uL (4.50-6.00); RDW-CV 14.8 % (10.5-14.5); WBC 15.9 thou/uL (4.0-11.0)
--- NOTE | 2021-01-21 04:33 | NUR ---
PT REMAINED IN BED ALL SHIFT. CAM BOOT IN PLACE ON LEFT WITH ELEVATION ON PILLOW. HE IS ALERT AND ORIENTED, [facility] INPLACE, USES URINAL IN BED WELL. HE DID REQUEST PAIN MEDICATION 2X FOR MODERATE PAIN THIS SHIFT. RECEIVED ALL OTHER MEDS SCHEDULED. WILL CONTINUE TO MONITOR.
[2021-01-21 04:38] LABS: CREATININE 1.2 mg/dL (0.6-1.3); POTASSIUM 4.6 mmol/L (3.5-5.1)
[2021-01-21 08:00] VITALS: BP 99/63
[2021-01-21 12:34] VITALS: BP 116/93
--- NOTE | 2021-01-21 15:17 | NUR ---
poc update: pt is on 4l o2. pt/ot ordered. rehab consult.
[2021-01-21 16:41] VITALS: BP 139/68
[2021-01-21 20:00] VITALS: BP 142/70
[2021-01-22] VITALS: BP 137/63
[2021-01-22 04:00] VITALS: BP 139/55
[2021-01-22 08:00] VITALS: BP 146/64
[2021-01-22 11:30] VITALS: BP 150/72
[2021-01-22 11:42] LABS: CREATININE 1.6 mg/dL (0.6-1.3); MAGNESIUM 2.2 mg/dL (1.8-2.4); POTASSIUM 5.2 mmol/L (3.5-5.1)
[2021-01-22 13:38] LABS: ALBUMIN 3.3 g/dL (3.4-5.0); DIRECT BILIRUBIN 0.1 mg/dL (<0.1-0.3); TOTAL BILIRUBIN 0.7 mg/dL (<0.1-1.0); TOTAL PROTEIN 6.4 g/dL (6.4-8.2)
[2021-01-22 16:00] VITALS: BP 126/62
--- NOTE | 2021-01-22 16:00 | NUR ---
POC UPDATE" PT ON 10L, WEAN DOWN O2 TO 5L OR LESS PRIOR TO DC. REHAB CONSULT PLACED; HOWEVER, REPORTED IN ROUNDS PT DOES NOT WANT TO GO TO REHAB.
[2021-01-22 20:00] VITALS: BP 110/59
[2021-01-23 00:51] VITALS: BP 136/59
[2021-01-23 04:00] VITALS: BP 151/68
[2021-01-23 06:32] LABS: HEMATOCRIT 37.4 % (42.0-52.0); HEMOGLOBIN 12.8 gm/dL (14.0-18.0); MCH 31.1 pg (26.0-34.0); MCHC 34.1 g/dL (28.0-37.0); MPV 7.9 fl. (7.2-11.1); NUCLEATED RBCS 0 /100WBC; PLATELET COUNT* 575 thou/uL (150-400); RDW-CV 15.2 % (10.5-14.5); WBC 17.6 thou/uL (4.0-11.0)
[2021-01-23 06:59] LABS: ALBUMIN 2.9 g/dL (3.4-5.0); CALCIUM 8.9 mg/dL (8.5-10.1); CREATININE 1.6 mg/dL (0.6-1.3); MAGNESIUM 2.5 mg/dL (1.8-2.4); POTASSIUM 4.8 mmol/L (3.5-5.1); TOTAL BILIRUBIN 0.8 mg/dL (<0.1-1.0); TOTAL PROTEIN 6.1 g/dL (6.4-8.2)
[2021-01-23 07:31] LABS: ABSOLUTE BASOPHILS 0.1 thou/uL (0.0-0.2); ABSOLUTE LYMPHOCYTES 1.8 thou/uL (0.8-5.3); ABSOLUTE MONOCYTES 0.9 thou/uL (0.0-1.2); ABSOLUTE NEUTROPHILS 14.8 thou/uL (1.6-8.1); BASOPHILS 0.3 %; LYMPHOCYTES 10.1 %; MONOCYTES 5.2 %; POLYS 84.4 %
[2021-01-23 08:00] VITALS: BP 176/70
[2021-01-23 12:41] VITALS: BP 130/61
[2021-01-23 17:20] VITALS: BP 110/53
[2021-01-23 20:00] VITALS: BP 121/52
[2021-01-24 00:31] VITALS: BP 99/43
[2021-01-24 04:52] VITALS: BP 122/53
[2021-01-24 08:00] VITALS: BP 149/63
[2021-01-24 11:41] VITALS: BP 133/57
[2021-01-24 15:42] VITALS: BP 109/61
[2021-01-24 20:00] VITALS: BP 137/64
[2021-01-25] VITALS: BP 110/54
[2021-01-25 04:00] VITALS: BP 121/64
[2021-01-25 04:35] LABS: ABSOLUTE LYMPHOCYTES 1.5 thou/uL (0.8-5.3); ABSOLUTE NEUTROPHILS 11.6 thou/uL (1.6-8.1); BASOPHILS 0.1 %; HEMATOCRIT 34.8 % (42.0-52.0); HEMOGLOBIN 11.7 gm/dL (14.0-18.0); LYMPHOCYTES 10.9 %; MCH 30.9 pg (26.0-34.0); MCHC 33.6 g/dL (28.0-37.0); MCV 91.7 fL (80.0-100.0); MONOCYTES 7.2 %; MPV 8.2 fl. (7.2-11.1); NUCLEATED RBCS 0 /100WBC; POLYS 81.8 %; RBC 3.79 mil/uL (4.50-6.00); WBC 14.2 thou/uL (4.0-11.0)
[2021-01-25 04:53] LABS: PLATELET COUNT* 442 thou/uL (150-400)
[2021-01-25 05:00] LABS: ALBUMIN 2.8 g/dL (3.4-5.0); CREATININE 2.2 mg/dL (0.6-1.3); MAGNESIUM 2.6 mg/dL (1.8-2.4); POTASSIUM 4.5 mmol/L (3.5-5.1); TOTAL BILIRUBIN 0.7 mg/dL (<0.1-1.0); TOTAL PROTEIN 5.6 g/dL (6.4-8.2)
--- NOTE | 2021-01-25 06:37 | NUR ---
ASSUMED CARE OF PT AFTER REPORT AT 1930. PT A&OX4. VSS. PHSICAL ASSESSMENT COMPLETED AND CHARTED. PT ON O2 AT 3L NC. PT TRACING SR ON TELE. PT COMPLAINED OF BACK PAIN-MED GIVEN PER MAY. FALL PRECAUTIONS IN PLACE. PT ABLE TO SLEEP WELL ON BED. CALL LIGHT WITHIN REACH.
[2021-01-25 08:00] VITALS: BP 144/67
--- NOTE | 2021-01-25 10:19 | NUR ---
The patient is NPO after midnight for her liver bisposy. The patieint and aware.
[2021-01-25 12:16] VITALS: BP 138/57
--- NOTE | 2021-01-25 14:26 | NUR ---
The patient had a charles placed. Using auto transmission technician. The patient tolerarted well.
[2021-01-25 16:00] VITALS: BP 137/45
--- NOTE | 2021-01-25 17:30 | NUR ---
CM F/U Pt medically clear. Rehab auth to be initiated.
[2021-01-25 20:00] VITALS: BP 142/54
[2021-01-26] VITALS (7 sets, daily range): BP systolic 120–163; BP diastolic 40–74
--- NOTE | 2021-01-26 07:56 | NUR ---
ASSUMED CARE OF PT AFTER REPORT AT 1930. PT AOX4. PHYSCICAL ASSESSMENT COMPLETED AND CHARTED. PT ON O2 AT 3-4L NC. PT TRACING SR ON TELE. PT COMPLAINED OF BACK PAIN-MED GIVEN PER MAY. PT WITH JASON TO DEPENDENT DRAIN-BLOOD TINGED OUTPUT NOTED. FALL PRECAUTIONS IN PLACE. CALL LIGHT WITHIN REACH.
[2021-01-26 13:52] LABS: BE 3.3 mmol/L (-2 to +3); PCO2 31.8 mmHg (35.0-45.0); PO2 86.7 mmHg (75.0-100.0); pH 7.525 (7.340-7.450)
[2021-01-26 13:59] LABS: ABSOLUTE LYMPHOCYTES 0.9 thou/uL (0.8-5.3); ABSOLUTE MONOCYTES 0.2 thou/uL (0.0-1.2); BASOPHILS 0.3 %; LYMPHOCYTES 6.6 %; MCH 31.5 pg (26.0-34.0); MCHC 34.3 g/dL (28.0-37.0); MCV 91.8 fL (80.0-100.0); MONOCYTES 1.7 %; MPV 7.9 fl. (7.2-11.1); NUCLEATED RBCS 0 /100WBC; PLATELET COUNT* 376 thou/uL (150-400); POLYS 91.4 %; RBC 3.49 mil/uL (4.50-6.00); RDW-CV 15.2 % (10.5-14.5); WBC 14.3 thou/uL (4.0-11.0)
[2021-01-26 14:10] LABS: ALBUMIN 2.6 g/dL (3.4-5.0); CALCIUM 7.6 mg/dL (8.5-10.1); CREATININE 1.5 mg/dL (0.6-1.3); MAGNESIUM 2.3 mg/dL (1.8-2.4); POTASSIUM 4.2 mmol/L (3.5-5.1); TOTAL BILIRUBIN 0.4 mg/dL (<0.1-1.0); TOTAL PROTEIN 5.2 g/dL (6.4-8.2)
--- NOTE | 2021-01-26 16:41 | NUR ---
Case Management Followup Pt not medically clear for discharge and no longer willing to participate in rehab services. Pt referred to [facility] for skilled. CM to continue to follow pt for discharge needs.
[2021-01-27 00:13] VITALS: BP 126/45
--- NOTE | 2021-01-27 03:32 | NUR ---
ASSUMED PT CARE AT APPROX 1930. PT IS AWAKE AND ORIENTED X4. PT IS TRACING SR ON THE MOLECULAR BIOLOGY DIRECTOR. O2 SUPPORT AT 7L/NC TO KEEP spO2 >92%. PT DENIES PAIN OF THIS TIME. PT IS ABLE TO REST THROUGHOUT THE NIGHT. HIGH FALL RPECAUTIONS IN PLACE. CALL LIGHT WITHIN REACH. HOURLY ROUNDING DONE FOR PT SAFETY.
[2021-01-27 04:00] VITALS: BP 156/55
[2021-01-27 04:44] LABS: ABSOLUTE EOSINOPHILS 0.1 thou/uL (0.0-0.7); ABSOLUTE LYMPHOCYTES 2.4 thou/uL (0.8-5.3); ABSOLUTE MONOCYTES 0.6 thou/uL (0.0-1.2); BASOPHILS 0.3 %; EOSINOPHILS 1.1 %; HEMATOCRIT 27.7 % (42.0-52.0); HEMOGLOBIN 9.6 gm/dL (14.0-18.0); LYMPHOCYTES 23.5 %; MCH 31.6 pg (26.0-34.0); MCHC 34.6 g/dL (28.0-37.0); MCV 91.3 fL (80.0-100.0); MPV 8.1 fl. (7.2-11.1); NUCLEATED RBCS 0 /100WBC; POLYS 69.1 %; RBC 3.03 mil/uL (4.50-6.00); RDW-CV 15.4 % (10.5-14.5); WBC 10.1 thou/uL (4.0-11.0)
[2021-01-27 04:58] LABS: CALCIUM 7.5 mg/dL (8.5-10.1); MAGNESIUM 2.2 mg/dL (1.8-2.4); POTASSIUM 3.5 mmol/L (3.5-5.1)
[2021-01-27 05:17] LABS: PLATELET COUNT* 297 thou/uL (150-400)
[2021-01-27 08:30] VITALS: BP 157/67
[2021-01-27 11:30] VITALS: BP 148/53
--- NOTE | 2021-01-27 15:47 | NUR ---
CM Followup - Pt not yet medically clear for discharge. Pt originally deemed ineligible for rehab services due to miscommunciation regarding willingness to particpate in rehab. Pt to be re-evaluated for rehab as pt is requesting to particpate in services.
[2021-01-27 16:00] VITALS: BP 155/61
[2021-01-27 20:30] VITALS: BP 145/56
[2021-01-28] VITALS: BP 113/48
[2021-01-28 04:00] VITALS: BP 131/61
[2021-01-28 04:53] LABS: HEMATOCRIT 31.2 % (42.0-52.0); HEMOGLOBIN 10.4 gm/dL (14.0-18.0); MCH 30.8 pg (26.0-34.0); MCHC 33.5 g/dL (28.0-37.0); MCV 92.1 fL (80.0-100.0); MPV 8.3 fl. (7.2-11.1); RBC 3.39 mil/uL (4.50-6.00); RDW-CV 15.3 % (10.5-14.5); WBC 13.9 thou/uL (4.0-11.0)
[2021-01-28 05:13] LABS: CALCIUM 7.9 mg/dL (8.5-10.1); CREATININE 0.9 mg/dL (0.6-1.3); POTASSIUM 3.9 mmol/L (3.5-5.1)
--- NOTE | 2021-01-28 06:59 | NUR ---
PATENT SLEPT WELL THROUGHOUT MOST OF THE NIGHT. VSS ON 7L 02 VIA NASAL CANNULA. MEDICATIONS GIVEN ORDERED AND CHARTED. ASSESSMENT CHARTED. CAM BOOT TO LEFT LOWER EXTREMITY. PATIENT HAS NOT BEEN UP DURING SHIFT AND HAS REMAINED NWB TO LEFT LEG. LAB CALLED THIS AM REGARDING LOW BLOOD SUGAR OF 31. PATIENT WAS ALERT AND ORIENTED WHEN AWAKENED AND AT APPROXIMATELY 0520 PATIENT WAS GIVEN 2 APPLE JUICES AND PATIENTS BLOOD SUGAR RECHECKED AT 0540 AND IT WAS 66. PATIENT GIVEN 2 MORE APPLE JUICES AT THIS TIME. BLOOD SUGAR RECHECKED AT 0607 AND BLOOD SUGAR WAS 124. NOTIFIED VIA SOCORRO ALMAGUER. NO NEW ORDERS RECEIVED. FALL PRECAUTIONS IN PLACE AND HOURLY ROUNDS MADE. WILL CONTINUE WITH PLAN OF CARE AND NURSING TO MONITOR.
[2021-01-28 08:00] VITALS: BP 134/65
[2021-01-28 12:32] VITALS: BP 140/46
[2021-01-28 15:47] VITALS: BP 165/64
--- NOTE | 2021-01-28 17:36 | NUR ---
CM FOLLOWUP PT REASSESSED FOR REHAB AND REHAB AUTH IS PENDING. THIS [employer] ATTEMPTED TO CONTACT PT'S (QUYEN GREENWOOD - [phone]) TO PROVIDE UPDATE, BUT WAS ONLY ABLE TO LEAVE A VOICEMAIL. CM TO CONTINUE TO FOLLOW PT.
[2021-01-28 20:00] VITALS: BP 144/64
[2021-01-29] VITALS (7 sets, daily range): BP systolic 113–158; BP diastolic 47–66
[2021-01-29 04:05] LABS: ABSOLUTE EOSINOPHILS 0.2 thou/uL (0.0-0.7); ABSOLUTE LYMPHOCYTES 2.5 thou/uL (0.8-5.3); ABSOLUTE MONOCYTES 0.5 thou/uL (0.0-1.2); ABSOLUTE NEUTROPHILS 7.9 thou/uL (1.6-8.1); BASOPHILS 0.1 %; EOSINOPHILS 1.7 %; HEMATOCRIT 27.2 % (42.0-52.0); HEMOGLOBIN 9.3 gm/dL (14.0-18.0); LYMPHOCYTES 22.7 %; MCH 31.7 pg (26.0-34.0); MCHC 34.3 g/dL (28.0-37.0); MCV 92.3 fL (80.0-100.0); MONOCYTES 4.8 %; MPV 7.9 fl. (7.2-11.1); NUCLEATED RBCS 0 /100WBC; PLATELET COUNT* 245 thou/uL (150-400); POLYS 70.7 %; RBC 2.95 mil/uL (4.50-6.00); RDW-CV 15.4 % (10.5-14.5); WBC 11.2 thou/uL (4.0-11.0)
[2021-01-29 04:30] LABS: ALBUMIN 2.2 g/dL (3.4-5.0); CALCIUM 7.6 mg/dL (8.5-10.1); CREATININE 0.9 mg/dL (0.6-1.3); MAGNESIUM 1.8 mg/dL (1.8-2.4); POTASSIUM 4.1 mmol/L (3.5-5.1); TOTAL BILIRUBIN 0.5 mg/dL (<0.1-1.0); TOTAL PROTEIN 4.5 g/dL (6.4-8.2)
[2021-01-29 15:13] LABS: ABSOLUTE LYMPHOCYTES 1.3 thou/uL (0.8-5.3); ABSOLUTE MONOCYTES 0.4 thou/uL (0.0-1.2); ABSOLUTE NEUTROPHILS 16.9 thou/uL (1.6-8.1); EOSINOPHILS 0.1 %; HEMATOCRIT 33.7 % (42.0-52.0); LYMPHOCYTES 7.1 %; MCH 31.4 pg (26.0-34.0); MCHC 33.5 g/dL (28.0-37.0); MCV 93.6 fL (80.0-100.0); MONOCYTES 1.9 %; MPV 7.9 fl. (7.2-11.1); NUCLEATED RBCS 0 /100WBC; PLATELET COUNT* 283 thou/uL (150-400); POLYS 90.9 %; RDW-CV 15.5 % (10.5-14.5); WBC 18.6 thou/uL (4.0-11.0)
[2021-01-29 15:15] LABS: HEMOGLOBIN 11.3 gm/dL (14.0-18.0)
--- NOTE | 2021-01-29 18:51 | NUR ---
CM FOLLOWUP PT MEDICALLY CLEAR AND PENDING REHAB AUTH.
[2021-01-30 04:00] VITALS: BP 164/55
--- NOTE | 2021-01-30 05:55 | NUR ---
pt continues to rest in bed. remains free from injury. good urine output via catheter. denies pain. no signs of bleeding noted. vitals wnl. pt able to turn self.
[2021-01-30 08:14] LABS: HEMATOCRIT 30.9 % (42.0-52.0); HEMOGLOBIN 10.4 gm/dL (14.0-18.0); MCH 31.5 pg (26.0-34.0); MCHC 33.6 g/dL (28.0-37.0); MCV 93.5 fL (80.0-100.0); RBC 3.31 mil/uL (4.50-6.00); RDW-CV 15.7 % (10.5-14.5); WBC 12.9 thou/uL (4.0-11.0)
[2021-01-30 08:33] LABS: ALBUMIN 2.6 g/dL (3.4-5.0); CALCIUM 8.1 mg/dL (8.5-10.1); MAGNESIUM 1.8 mg/dL (1.8-2.4); POTASSIUM 4.3 mmol/L (3.5-5.1); TOTAL BILIRUBIN 0.7 mg/dL (<0.1-1.0); TOTAL PROTEIN 4.8 g/dL (6.4-8.2)
[2021-01-30 08:46] LABS: APTT 21.4 Seconds (25.0-31.3); PROTIME 10.7 Seconds (9.20-11.50)
[2021-01-30 09:00] VITALS: BP 129/46
[2021-01-30 12:30] VITALS: BP 138/59
[2021-01-30 16:22] VITALS: BP 141/58
[2021-01-30 20:10] VITALS: BP 145/59
[2021-01-31 00:20] VITALS: BP 115/57
[2021-01-31 04:11] LABS: HEMATOCRIT 28.2 % (42.0-52.0); HEMOGLOBIN 9.4 gm/dL (14.0-18.0); MCH 31.5 pg (26.0-34.0); MCHC 33.5 g/dL (28.0-37.0); MCV 94.2 fL (80.0-100.0); MPV 7.8 fl. (7.2-11.1); RDW-CV 15.6 % (10.5-14.5); WBC 12.1 thou/uL (4.0-11.0)
[2021-01-31 04:19] LABS: CALCIUM 7.6 mg/dL (8.5-10.1); CREATININE 0.9 mg/dL (0.6-1.3); POTASSIUM 3.7 mmol/L (3.5-5.1)
[2021-01-31 04:31] VITALS: BP 137/58
--- NOTE | 2021-01-31 06:18 | NUR ---
pt rested well. denies pain. vitals wnl. pt stable on 4L NC. REMAINS FREE FROM INJURY. HAD 1 STOOL WITH SMALL ABOUT OF BLOOD. JASON INTACT, GOOD URNINE OUTPUT
[2021-01-31 12:21] VITALS: BP 132/61
[2021-01-31 17:00] VITALS: BP 147/57
[2021-01-31 19:50] VITALS: BP 152/62
[2021-01-31 23:27] VITALS: BP 127/55
[2021-02-01 03:39] VITALS: BP 139/61
[2021-02-01 03:55] LABS: ABSOLUTE BASOPHILS 0.1 thou/uL (0.0-0.2); ABSOLUTE LYMPHOCYTES 1.9 thou/uL (0.8-5.3); ABSOLUTE MONOCYTES 0.7 thou/uL (0.0-1.2); ABSOLUTE NEUTROPHILS 12.2 thou/uL (1.6-8.1); BASOPHILS 0.6 %; EOSINOPHILS 0.2 %; HEMATOCRIT 29.8 % (42.0-52.0); HEMOGLOBIN 9.9 gm/dL (14.0-18.0); LYMPHOCYTES 12.4 %; MCH 31.2 pg (26.0-34.0); MCHC 33.3 g/dL (28.0-37.0); MCV 93.7 fL (80.0-100.0); MONOCYTES 4.7 %; MPV 7.7 fl. (7.2-11.1); NUCLEATED RBCS 0 /100WBC; PLATELET COUNT* 191 thou/uL (150-400); POLYS 82.1 %; RBC 3.18 mil/uL (4.50-6.00); RDW-CV 16.1 % (10.5-14.5); WBC 14.9 thou/uL (4.0-11.0)
[2021-02-01 04:14] LABS: ALBUMIN 2.4 g/dL (3.4-5.0); CALCIUM 7.7 mg/dL (8.5-10.1); CREATININE 1.1 mg/dL (0.6-1.3); MAGNESIUM 1.8 mg/dL (1.8-2.4); TOTAL BILIRUBIN 0.6 mg/dL (<0.1-1.0)
[2021-02-01 09:30] VITALS: BP 147/62
--- NOTE | 2021-02-01 09:49 | CON ---
[facility] [address] [place] [address] CONSULTATION Name: PATRICK GREENWOOD Room: [address] ADM IN M.R.#: [id number] Admission: 01/06/21 Attend Phys: Diann Dixon Discharge: Date of : 41 Report #: [id number] THIS REPORT FOR: cc: Sergio Stern MD, Anthony MD Vardakis, Gregory DO ~ cc: Joey Jerome DO, Sergio Stern MD DATE OF CONSULTATION: 01/30/2021 REFERRING DOCTOR: Joey Jerome DO REASON FOR CONSULTATION: Rectal bleeding. IMPRESSION: 1. Overt hematochezia, most compatible with lower gastrointestinal bleed-suspect diverticular bleed versus hemorrhoidal disease versus less likely ischemic colitis or other issues. 2. COVID-associated pneumonia with underlying chronic obstructive pulmonary disease with continued hypoxemic respiratory failure requiring 5 liters of oxygen per nasal cannula. 3. Previous history of stroke requiring chronic Plavix and aspirin. RECOMMENDATIONS: 1. At this point, we will watch and wait. We will adopt a watch and wait plan of care. If he continues to have rectal bleeding, we will proceed with bowel preparation and colonoscopy. However, I would like to hold off on that due to his high oxygen requirements and the need for sedation for colonoscopy. I recommend he stay in the hospital due to ____. If he has no further bleeding off of Lovenox, he may be able to be transferred to the rehabilitation unit where he can be monitored for any further bleeding. 2. I have reviewed our records regarding his previous endoscopies. His last examination was performed in 01/2018 with findings of only diverticular disease within the sigmoid colon with no other significant findings. The diverticula were noted through the sigmoid, descending and transverse colon. HISTORY OF PRESENT ILLNESS: He is a pleasant 75-year-old white male who is currently hospitalized since 01/06/2021 for problems related to COVID-associated pneumonia. He is progressively getting better, but a couple of days ago, started to have some rectal bleeding which was overt in nature and had another episode yesterday. We were asked to see him for evaluation and treatment of the same. He denies any complaints referable to his upper or lower GI tract. He states his bowel frequency is usually once daily, but he has had been more on the constipated side because of issues with his level of activity. His typical bowel frequency is usually twice weekly which is [place] [address] CONSULTATION Name: PATRICK GREENWOOD Room: [address] IN [facility]#: [id number] Admission: 01/06/21 Attend Phys: Diann Dixon Discharge: Date of : 41 Report #: [id number] actually admitted to the hospital because of a left ankle fracture, which required surgery and had associated COVID pneumonia at the same time. He is being treated for both. He is currently on 5 liters of oxygen and is markedly symptomatic with just minimal exertion still. He has not had any further bleeding since yesterday. ALLERGIES: HYDROCODONE AND PHENYLEPHRINE. CURRENT MEDICATIONS: Include dexamethasone, Seroquel, N-acetylcysteine, carvedilol, vitamin D, zinc, ascorbic acid, lactobacillus, pantoprazole, levalbuterol, insulin, arformoterol, tamsulosin, levothyroxine, atorvastatin, tizanidine, lorazepam, and hydrocodone. PAST MEDICAL AND SURGICAL HISTORY: Remarkable for recent trimalleolar fracture requiring surgery. He has had history of hypertension and diabetes. He has had previous stroke in 2017 for which he is on chronic Plavix. He has underlying COPD. He has issues related to enlarged prostate. He has had sinus issues. He has had precancerous lesions in his right leg requiring surgeries, had previous cholecystectomy, underlying hypothyroidism, previous thyroidectomy, and left shoulder surgery. SOCIAL HISTORY: The patient does not smoke or drink. FAMILY HISTORY: Negative. PHYSICAL EXAMINATION: GENERAL: A pleasant 75-year-old gentleman who is awake and alert. He is conversationally dyspneic. HEART: His cardiopulmonary examination revealed a regular rhythm. LUNGS: Coarse. ABDOMEN: Soft and nontender. No rebound or guarding noted. LABORATORY DATA: His laboratory tests from the revealed a white count of 12.9, hemoglobin 10.4, and platelet count 237,000. MCV is 93.5 and RDW is 15.7. On admission, his hemoglobin was 14.4. Sodium 141, potassium 4.3, chloride 108, bicarbonate 24, BUN is 25, and creatinine 1.0. Total bilirubin 0.7, alkaline phosphatase 62, AST 30, and ALT 57. Albumin is 2.6. DISCUSSION: At the present time, the patient has had some overt rectal bleeding, which is likely related to diverticular disease. He is no longer on Lovenox at this point. We will just watch and wait at this point due to his respiratory issues and if he should have any overt bleeding that requires us to [address] [address] CONSULTATION Name: PATRICK GREENWOOD Room: M.108-P ADM IN M.R.#: [id number] Admission: 01/06/21 Attend Phys: Diann Dixon Discharge: Date of : 41 Report #: [id number] perform a colonoscopy, we will certainly do so. I have discussed this plan with daughter as well as the and they are agreeable to this plan. <ELECTRONICALLY SIGNED> By: Sánchez Aquino DO 02/01/21 0949 0714 [id number] Aquino DO /nt
[2021-02-01 12:00] VITALS: BP 134/54
--- NOTE | 2021-02-01 15:40 | NUR ---
CM FOLLOWUP CM AND PROVIDERS MET TO DISCUSS PLAN OF CARE. PT MEDCIALLY CLEAR FOR DISCHARGE TO REHAB UNIT. CM TO CONTINUE TO FOLLOW PT.
[2021-02-01 20:00] VITALS: BP 158/78
[2021-02-01 20:05] VITALS: BP 158/78
[2021-02-01] MEDS ORDERED: COREG6.25 MG PO (21:19)
[2021-02-01] MEDS ORDERED: PREDNISONE 20 M20 MG PO (21:19)
[2021-02-01] MEDS ORDERED: SEROQUEL 50 MG50 MG PO (21:19)
[2021-02-01] MEDS ORDERED: TYLENOL325 MG PO (21:19)
--- NOTE | 2021-02-01 21:46 | NUR ---
SPOKE WITH DR PEARSON REGARDING PT HOME INSULIN DOSE NEED TO CLARIFY HOME DOSE; PLAN TO DISCHARGE PT TO REHAB; PT TO CONTINUE CURRENTLY DOSING OF INSULIN LANTUS 20 UNITS DAILY, PLUS HOSPITAL SLIDING SCALE DOSE; CREDIT ANALYST INSTRUCTED TO FOLLOW UP WITH CLARIFICATION OF HOME DOSE OF INSULIN.
--- NOTE | 2021-02-01 23:35 | NUR ---
LATE ENTRY: REPORT GIVEN TO RHONDA REBOLLAR (REHAB UNIT). IV CATHETER TAKEN OUT.PT AWARE OF TRANSFER, DISCHARGE INSTRUCTIONS GIVEN/PT VERBALIZED UNDERSTANDING. HS MEDS GIVEN PRIOR TO PATIENT TRANSFER AND JASON CATHETER EMPTIED. PT TRANSFERED VIA BED. DISCHARGE DOCUMENTS SENT ALONG WITH BELONGINGS AND PATIENT CHART.
== END 2021-02-01 23:37 | DRG 981 ==
LOC: M.ERS 22:13 → M.ORTHSURG 01-06 03:04 → M.ICU 01-06 03:04 → M.TBA-ER 01-06 03:04 → M.ICU 01-06 05:14 → M.ORTHSURG 01-07 15:15
PROVIDERS: Emergency Medicine; Family Medicine; Internal Medicine; Internal Medicine Critical Care Medicine; ADMIT Internal Medicine; ATTEND Internal Medicine
PROC: 0QSK04Z Reposition Left Fibula with Internal Fixation Device, Open Approach (ICD-10-PCS; 2021-01-08)
PROC: 0SSG0ZZ Reposition Left Ankle Joint, Open Approach (ICD-10-PCS; 2021-01-08)
PROC: 0QSH04Z Reposition Left Tibia with Internal Fixation Device, Open Approach (ICD-10-PCS; 2021-01-08)
PROC: 5A0935A Assistance with Respiratory Ventilation, Less than 24 Consecutive Hours, High Flow/Velocity Cannula (ICD-10-PCS; principal; 2021-01-09)
PROC: 5A0935A Assistance with Respiratory Ventilation, Less than 24 Consecutive Hours, High Flow/Velocity Cannula (ICD-10-PCS; 2021-01-10)
PROC: 5A0955A Assistance with Respiratory Ventilation, Greater than 96 Consecutive Hours, High Flow/Velocity Cannula (ICD-10-PCS; 2021-01-11)
PROC: XW033H5 Introduction of Tocilizumab into Peripheral Vein, Percutaneous Approach, New Technology Group 5 (ICD-10-PCS; 2021-01-14)
PROC: 5A09357 Assistance with Respiratory Ventilation, Less than 24 Consecutive Hours, Continuous Positive Airway Pressure (ICD-10-PCS; 2021-01-14)
PROC: 5A0935A Assistance with Respiratory Ventilation, Less than 24 Consecutive Hours, High Flow/Velocity Cannula (ICD-10-PCS; 2021-01-31)
DX: U07.1 COVID-19 (principal); J96.01 Acute respiratory failure with hypoxia; J12.82 Pneumonia due to coronavirus disease 2019; J44.0 Chronic obstructive pulmonary disease with (acute) lower respiratory infection; J44.1 Chronic obstructive pulmonary disease with (acute) exacerbation; K92.2 Gastrointestinal hemorrhage, unspecified; N17.9 Acute kidney failure, unspecified; S82.852A Displaced trimalleolar fracture of left lower leg, initial encounter for closed fracture; I10 Essential (primary) hypertension; R79.1 Abnormal coagulation profile; I49.9 Cardiac arrhythmia, unspecified; N40.0 Benign prostatic hyperplasia without lower urinary tract symptoms; I95.9 Hypotension, unspecified; T67.1XXA Heat syncope, initial encounter; X58.XXXA Exposure to other specified factors, initial encounter; E87.70 Fluid overload, unspecified; W06.XXXA Fall from bed, initial encounter; E78.5 Hyperlipidemia, unspecified; I45.5 Other specified heart block; D64.9 Anemia, unspecified; R33.9 Retention of urine, unspecified; E11.65 Type 2 diabetes mellitus with hyperglycemia; E03.9 Hypothyroidism, unspecified; Z28.21 Immunization not carried out because of patient refusal; Z86.73 Personal history of transient ischemic attack (TIA), and cerebral infarction without residual deficits; Y93.89 Activity, other specified; Y92.89 Other specified places as the place of occurrence of the external cause; Y99.8 Other external cause status; Z98.52 Vasectomy status; Z90.49 Acquired absence of other specified parts of digestive tract; Z79.899 Other long term (current) drug therapy; Z79.82 Long term (current) use of aspirin; Z79.4 Long term (current) use of insulin; Z79.02 Long term (current) use of antithrombotics/antiplatelets; Z88.5 Allergy status to narcotic agent; Z88.8 Allergy status to other drugs, medicaments and biological substances; Z87.891 Personal history of nicotine dependence

== ENCOUNTER 2021-02-01 23:01 | Inpatient (IN) | payer OTHER ==
[~2021-02-01] VITALS: Ht 175.3 cm; Wt 73.5 kg
[~2021-02-01 23:01] MED LIST changes: -ATORVASTATIN CA40 MG PO; +COREG6.25 MG PO; +HYDROCHLOROTHIA25 M1 PO; +MICARDIS 20MG T20 M1 PO; +NORVASC10 MG PO; +PREDNISONE 20 M20 MG PO; +SEROQUEL 50 MG50 MG PO; +SPIRONOLACTONE25 MG PO; +TYLENOL325 MG PO
[2021-02-01 23:40] VITALS: BP 141/60
[2021-02-02 04:19] LABS: HEMATOCRIT 31.1 % (42.0-52.0); HEMOGLOBIN 10.6 gm/dL (14.0-18.0); MCH 31.7 pg (26.0-34.0); MCHC 33.9 g/dL (28.0-37.0); MCV 93.5 fL (80.0-100.0); MPV 7.4 fl. (7.2-11.1); RBC 3.33 mil/uL (4.50-6.00); RDW-CV 16.4 % (10.5-14.5); WBC 14.9 thou/uL (4.0-11.0)
[2021-02-02 04:27] LABS: POTASSIUM 3.7 mmol/L (3.5-5.1)
[2021-02-02 07:00] VITALS: BP 148/61
[2021-02-02 19:50] VITALS: BP 137/61
[2021-02-03 05:39] LABS: HEMATOCRIT 31.9 % (42.0-52.0); HEMOGLOBIN 10.9 gm/dL (14.0-18.0); MCV 94.2 fL (80.0-100.0); MPV 7.4 fl. (7.2-11.1); RBC 3.39 mil/uL (4.50-6.00); RDW-CV 17.1 % (10.5-14.5); WBC 13.7 thou/uL (4.0-11.0)
[2021-02-03 05:48] LABS: CALCIUM 8.4 mg/dL (8.5-10.1); CREATININE 0.9 mg/dL (0.6-1.3); POTASSIUM 4.1 mmol/L (3.5-5.1)
[2021-02-03 07:40] VITALS: BP 137/56
[2021-02-03 20:17] VITALS: BP 132/51
[2021-02-04 07:40] VITALS: BP 152/66
[2021-02-04 20:00] VITALS: BP 145/54
[2021-02-05 07:50] VITALS: BP 122/72; BP 135/58
[2021-02-05 19:32] VITALS: BP 140/58
[2021-02-06 08:06] VITALS: BP 137/57
[2021-02-06 20:00] VITALS: BP 132/49
[2021-02-07 07:56] VITALS: BP 136/64
[2021-02-07 15:43] VITALS: BP 129/58
[2021-02-07 19:27] VITALS: BP 138/64
[2021-02-08 07:27] VITALS: BP 142/67
[2021-02-08 19:31] VITALS: BP 124/82
[2021-02-09 07:45] VITALS: BP 149/92
[2021-02-09 16:38] VITALS: BP 136/59
[2021-02-09 20:00] VITALS: BP 149/60
[2021-02-10 05:44] LABS: HEMATOCRIT 35.4 % (42.0-52.0); HEMOGLOBIN 12.1 gm/dL (14.0-18.0); MCH 31.9 pg (26.0-34.0); MCHC 34.2 g/dL (28.0-37.0); MCV 93.1 fL (80.0-100.0); RBC 3.81 mil/uL (4.50-6.00); RDW-CV 16.2 % (10.5-14.5); WBC 9.7 thou/uL (4.0-11.0)
[2021-02-10 06:16] LABS: CALCIUM 8.6 mg/dL (8.5-10.1); CREATININE 0.9 mg/dL (0.6-1.3); POTASSIUM 3.5 mmol/L (3.5-5.1)
[2021-02-10 08:00] VITALS: BP 176/85
[2021-02-10 17:07] VITALS: BP 128/59
[2021-02-10 19:00] VITALS: BP 125/58
[2021-02-11 07:30] VITALS: BP 130/63
[2021-02-11 12:11] LABS: URINE BILIRUBIN NEGATIVE (Negative); URINE BLOOD 3+ (Negative); URINE CLARITY CLEAR; URINE COLOR YELLOW; URINE GLUCOSE-RANDOM NEGATIVE (Negative); URINE KETONES NEGATIVE (Negative); URINE LEUKOCYTES-REFLEX 1+ (Negative); URINE PROTEIN NEGATIVE (Negative); URINE UROBILINOGEN 0.2 E.U./dl (0.2-1.0)
[2021-02-11 12:16] LABS: URINE NITRITE-REFLEX POSITIVE (Negative)
[2021-02-11 12:26] LABS: CASTS None Seen /LPF (None Seen); CRYSTALS None Seen /LPF (None Seen); MUCUS None Seen strn/LPF (None Seen); SQUAMOUS NONE SEEN /LPF (0-3)
[2021-02-11 16:42] VITALS: BP 135/62
[2021-02-11 19:00] VITALS: BP 146/56
[2021-02-12 07:39] VITALS: BP 152/71
[2021-02-12 19:45] VITALS: BP 125/49
[2021-02-13 08:31] VITALS: BP 140/59
[2021-02-13 20:00] VITALS: BP 129/59
[2021-02-14 07:30] VITALS: BP 149/62
[2021-02-14 19:40] VITALS: BP 120/49
[2021-02-15 08:00] VITALS: BP 138/58
[2021-02-15 19:00] VITALS: BP 150/60
[2021-02-16 08:02] VITALS: BP 148/67
[2021-02-16 20:00] VITALS: BP 127/48
[2021-02-17 04:24] LABS: HEMATOCRIT 31.1 % (42.0-52.0); HEMOGLOBIN 10.7 gm/dL (14.0-18.0); MCHC 34.4 g/dL (28.0-37.0); MPV 6.9 fl. (7.2-11.1); RBC 3.34 mil/uL (4.50-6.00); RDW-CV 16.1 % (10.5-14.5); WBC 7.7 thou/uL (4.0-11.0)
[2021-02-17 05:10] LABS: CALCIUM 8.4 mg/dL (8.5-10.1); POTASSIUM 3.8 mmol/L (3.5-5.1)
[2021-02-17 07:48] VITALS: BP 151/72
[2021-02-17 19:35] VITALS: BP 134/61
[2021-02-18 07:30] VITALS: BP 148/62
[2021-02-18 13:12] LABS: URINE BILIRUBIN NEGATIVE (Negative); URINE BLOOD 2+ (Negative); URINE CLARITY CLOUDY; URINE COLOR YELLOW; URINE GLUCOSE-RANDOM NEGATIVE (Negative); URINE KETONES NEGATIVE (Negative); URINE PROTEIN 1+ (Negative); URINE SPECIFIC GRAVITY 1.015 (1.005-1.030); URINE UROBILINOGEN 0.2 E.U./dl (0.2-1.0)
[2021-02-18 13:13] VITALS: BP 148/62
[2021-02-18 13:13] LABS: URINE LEUKOCYTES-REFLEX 3+ (Negative); URINE NITRITE-REFLEX POSITIVE (Negative)
[2021-02-18 13:25] LABS: SQUAMOUS 0-3 Few /LPF (0-3); URINE RBC >20 Many /HPF (0-2); URINE WBC-REFLEX >25 Many /HPF (0-5)
[2021-02-18 13:26] LABS: CASTS None Seen /LPF (None Seen); CRYSTALS None Seen /LPF (None Seen)
[2021-02-18] MEDS ORDERED: CIPRO250 M2 PO (14:02)
[2021-02-18] MEDS ORDERED: LANTUS SUBQ (14:04)
[2021-02-18] MEDS ORDERED: HUMALOG100 UNIT/1 SUBQ (14:06)
== END 2021-02-18 16:15 | disposition home or self-care (01) | DRG 562 ==
LOC: M.PRE 23:01 → M.REH 23:46
PROVIDERS: Internal Medicine; ADMIT Physical Medicine & Rehabilitation; ATTEND Physical Medicine & Rehabilitation
DX: S82.892A Other fracture of left lower leg, initial encounter for closed fracture (principal); J96.01 Acute respiratory failure with hypoxia; E44.0 Moderate protein-calorie malnutrition; I10 Essential (primary) hypertension; R54 Age-related physical debility; E11.9 Type 2 diabetes mellitus without complications; J44.9 Chronic obstructive pulmonary disease, unspecified; R33.9 Retention of urine, unspecified; Z88.6 Allergy status to analgesic agent; Z68.23 Body mass index [BMI] 23.0-23.9, adult; Z86.73 Personal history of transient ischemic attack (TIA), and cerebral infarction without residual deficits; Z88.8 Allergy status to other drugs, medicaments and biological substances; Z86.16 Personal history of COVID-19; W18.39XA Other fall on same level, initial encounter; Y93.89 Activity, other specified; Y92.89 Other specified places as the place of occurrence of the external cause; Y99.8 Other external cause status

== ENCOUNTER 2021-03-12 08:24 | Inpatient (IN) | payer OTHER ==
[~2021-03-12] VITALS: Ht 175.3 cm; Wt 69.4 kg
--- NOTE | ~2021-03-12 | OP ---
[address] [address] OPERATIVE REPORT Name: TIMOPATRICKOCHOA VIGIL Room: [address] IN M.R.#: [id number] Admission: 03/12/21 Attend Phys: Jose Bowens MD Discharge: 03/15/21 Date of : 41 Report #: [id number] THIS REPORT FOR: cc: Sergio Stern MD, Anthony MD [facility],Medical Records Staff ~ For Operative report, please see the Post operative note for details. By: 0648Medical Records Staff LILIANA /GUNNAR
[~2021-03-12 08:24] MED LIST changes: +CIPRO250 M2 PO; +HUMALOG100 UNIT/1 SUBQ; +LANTUS SUBQ
[2021-03-12 08:37] VITALS: BP 166/70
[2021-03-12 10:38] LABS: CALCIUM 9.1 mg/dL (8.5-10.1); CREATININE 1.2 mg/dL (0.6-1.3); POTASSIUM 4.5 mmol/L (3.5-5.1)
[2021-03-12 10:43] LABS: ALBUMIN 3.1 g/dL (3.4-5.0); TOTAL BILIRUBIN 0.2 mg/dL (<0.1-1.0); TOTAL PROTEIN 6.8 g/dL (6.4-8.2)
[2021-03-12 10:46] LABS: ABSOLUTE BASOPHILS 0.1 thou/uL (0.0-0.2); ABSOLUTE EOSINOPHILS 0.2 thou/uL (0.0-0.7); ABSOLUTE LYMPHOCYTES 2.1 thou/uL (0.8-5.3); ABSOLUTE MONOCYTES 0.7 thou/uL (0.0-1.2); ABSOLUTE NEUTROPHILS 7.7 thou/uL (1.6-8.1); BASOPHILS 1.1 %; EOSINOPHILS 2.3 %; HEMATOCRIT 32.5 % (42.0-52.0); MCH 30.9 pg (26.0-34.0); MCHC 33.7 g/dL (28.0-37.0); MCV 91.6 fL (80.0-100.0); MONOCYTES 6.8 %; MPV 7.3 fl. (7.2-11.1); NUCLEATED RBCS 0 /100WBC; PLATELET COUNT* 581 thou/uL (150-400); POLYS 70.8 %; RBC 3.54 mil/uL (4.50-6.00); RDW-CV 16.7 % (10.5-14.5); WBC 10.9 thou/uL (4.0-11.0)
[2021-03-12 11:43] LABS: URINE CLARITY CLOUDY; URINE COLOR RED
[2021-03-12 11:44] LABS: URINE GLUCOSE-RANDOM NEGATIVE (Negative)
[2021-03-12 11:45] LABS: URINE KETONES NEGATIVE (Negative); URINE NITRITE-REFLEX NEGATIVE (Negative); URINE SPECIFIC GRAVITY 1.015 (1.005-1.030)
[2021-03-12 11:46] LABS: URINE BILIRUBIN NEGATIVE (Negative); URINE PROTEIN 2+ (Negative)
[2021-03-12 11:47] LABS: URINE BLOOD 3+ (Negative); URINE LEUKOCYTES-REFLEX TRACE (Negative); URINE UROBILINOGEN 0.2 E.U./dl (0.2-1.0)
[2021-03-12 11:49] LABS: SQUAMOUS NONE SEEN /LPF (0-3)
[2021-03-12 11:50] LABS: BACTERIA-REFLEX None Seen /HPF (None Seen); CASTS None Seen /LPF (None Seen); CRYSTALS None Seen /LPF (None Seen); URINE RBC >20 Many /HPF (0-2); URINE WBC-REFLEX 0-5 Rare /HPF (0-5)
[2021-03-12 17:58] VITALS: BP 145/58
[2021-03-12 21:58] VITALS: BP 97/47
[2021-03-13 00:59] VITALS: BP 97/47
[2021-03-13 01:15] VITALS: BP 109/55
[2021-03-13 07:36] LABS: ABSOLUTE BASOPHILS 0.1 thou/uL (0.0-0.2); ABSOLUTE EOSINOPHILS 0.4 thou/uL (0.0-0.7); ABSOLUTE LYMPHOCYTES 1.9 thou/uL (0.8-5.3); ABSOLUTE MONOCYTES 0.6 thou/uL (0.0-1.2); ABSOLUTE NEUTROPHILS 5.1 thou/uL (1.6-8.1); BASOPHILS 0.9 %; EOSINOPHILS 4.4 %; HEMATOCRIT 23.8 % (42.0-52.0); LYMPHOCYTES 23.5 %; MCH 31.3 pg (26.0-34.0); MCV 92.1 fL (80.0-100.0); MONOCYTES 7.6 %; MPV 6.9 fl. (7.2-11.1); NUCLEATED RBCS 0 /100WBC; POLYS 63.6 %; RBC 2.58 mil/uL (4.50-6.00); RDW-CV 16.3 % (10.5-14.5); WBC 8.1 thou/uL (4.0-11.0)
[2021-03-13 07:49] LABS: CALCIUM 8.4 mg/dL (8.5-10.1); CREATININE 1.1 mg/dL (0.6-1.3); POTASSIUM 4.3 mmol/L (3.5-5.1)
[2021-03-13 08:00] VITALS: BP 137/62
[2021-03-13 08:04] LABS: HEMOGLOBIN 8.1 gm/dL (14.0-18.0); PLATELET COUNT* 463 thou/uL (150-400)
[2021-03-13 17:27] VITALS: BP 129/50
[2021-03-13 19:25] VITALS: BP 150/52
[2021-03-14 08:32] VITALS: BP 157/65
[2021-03-14 08:39] LABS: HEMATOCRIT 22.9 % (42.0-52.0); HEMOGLOBIN 7.8 gm/dL (14.0-18.0); MCH 30.7 pg (26.0-34.0); MCHC 34.1 g/dL (28.0-37.0); MCV 90.1 fL (80.0-100.0); RBC 2.55 mil/uL (4.50-6.00); RDW-CV 15.7 % (10.5-14.5); WBC 8.5 thou/uL (4.0-11.0)
[2021-03-14 20:00] VITALS: BP 140/59
[2021-03-15 05:11] LABS: ABSOLUTE BASOPHILS 0.1 thou/uL (0.0-0.2); ABSOLUTE LYMPHOCYTES 1.6 thou/uL (0.8-5.3); ABSOLUTE MONOCYTES 0.5 thou/uL (0.0-1.2); ABSOLUTE NEUTROPHILS 6.4 thou/uL (1.6-8.1); BASOPHILS 0.8 %; EOSINOPHILS 0.1 %; HEMATOCRIT 22.5 % (42.0-52.0); HEMOGLOBIN 7.8 gm/dL (14.0-18.0); LYMPHOCYTES 18.2 %; MCH 31.1 pg (26.0-34.0); MCHC 34.8 g/dL (28.0-37.0); MCV 89.2 fL (80.0-100.0); MONOCYTES 6.1 %; NUCLEATED RBCS 0 /100WBC; PLATELET COUNT* 472 thou/uL (150-400); POLYS 74.8 %; RBC 2.52 mil/uL (4.50-6.00); RDW-CV 15.8 % (10.5-14.5); WBC 8.6 thou/uL (4.0-11.0)
[2021-03-15 05:32] LABS: ALBUMIN 2.3 g/dL (3.4-5.0); CALCIUM 7.9 mg/dL (8.5-10.1); POTASSIUM 4.2 mmol/L (3.5-5.1); TOTAL BILIRUBIN 0.2 mg/dL (<0.1-1.0); TOTAL PROTEIN 5.6 g/dL (6.4-8.2)
[2021-03-15 08:00] VITALS: BP 144/63
[2021-03-15] MEDS ORDERED: PLAVIX 75 MG TA75 M1 PO (09:56)
--- NOTE | 2021-03-15 12:30 | EKG ---
[place] [address] ELECTROCARDIOGRAM REPORT Name: PATRICK GREENWOOD Room: [address] ADM IN M.R.#: [id number] Admission: 03/12/21 Attend Phys: Jose Bowens, Discharge: Date of : 41 Date of Service: 03/14/21 1440 Report #: [id number] THIS REPORT FOR: //name// [facility] Test Date: 2021-03-14 Test Time: 14:40:18 Pat Name: PATRICK GREENWOOD Department: Room: [address] Gender: M Patient Care Assistant: BD : 1945 Requested By: Jose Bowens Order Number: [id number] Reading MD: Mega May Measurements Intervals [place] Rate: 85 P: 37 DC: 152 QRS: 45 QRSD: 97 T: 46 QT: 350 QTc: 417 Interpretive Statements Sinus rhythm Borderline T wave abnormalities Compared to ECG 01/05/2021 22:20:35 T-wave abnormality now present Electronically Signed On 03-15-2021 12:30:18 SYSTEM ENGINEER by Mega May [email or web address] <ELECTRONICALLY SIGNED> By: Mega May MD, FACC 03/15/21 1230 1440 1440 Mega May MD, [facility] /EPI
[2021-03-15 12:31] VITALS: BP 149/50
[2021-03-15 13:03] VITALS: BP 149/50
== END 2021-03-15 15:40 | disposition home or self-care (01) | DRG 666 ==
LOC: M.ERS 08:24 → M.2W 12:03 → M.TBA-ER 12:03 → M.2W 03-13 01:02
PROVIDERS: Family Medicine; Urology; ADMIT Internal Medicine; ATTEND Internal Medicine
PROC: 0V508ZZ Destruction of Prostate, Via Natural or Artificial Opening Endoscopic (ICD-10-PCS; principal; 2021-03-14)
PROC: 0TCB8ZZ Extirpation of Matter from Bladder, Via Natural or Artificial Opening Endoscopic (ICD-10-PCS; principal; 2021-03-14)
DX: S37.22XA Contusion of bladder, initial encounter (principal); D62 Acute posthemorrhagic anemia; E44.1 Mild protein-calorie malnutrition; R31.0 Gross hematuria; N40.1 Benign prostatic hyperplasia with lower urinary tract symptoms; R33.8 Other retention of urine; I10 Essential (primary) hypertension; E89.0 Postprocedural hypothyroidism; Z20.822 Contact with and (suspected) exposure to COVID-19; E11.9 Type 2 diabetes mellitus without complications; J44.9 Chronic obstructive pulmonary disease, unspecified; Z86.16 Personal history of COVID-19; Z86.73 Personal history of transient ischemic attack (TIA), and cerebral infarction without residual deficits; Z88.6 Allergy status to analgesic agent; Z88.8 Allergy status to other drugs, medicaments and biological substances; Z79.82 Long term (current) use of aspirin; Z79.899 Other long term (current) drug therapy; Z98.52 Vasectomy status; Z90.49 Acquired absence of other specified parts of digestive tract; Z85.46 Personal history of malignant neoplasm of prostate; Z87.81 Personal history of (healed) traumatic fracture; X58.XXXA Exposure to other specified factors, initial encounter; Y93.89 Activity, other specified; Y92.89 Other specified places as the place of occurrence of the external cause; Y99.8 Other external cause status